=== PATIENT | female | born 1980 | race Caucasian/White ===

== ENCOUNTER → 2019-08-08 16:32 | Outpatient (CLI) | payer OTHER, SELFPAY ==
--- NOTE | 2019-08-08 16:32 | US_ITS ---
STUDY: SECOND AND THIRD TRIMESTER OBSTETRICAL ULTRASOUND limited REASON FOR EXAM: Female, 38 years old BLEEDING MILD NO CRAMPS VIABILITY LMP: 04/28/2019 TECHNIQUE: Transabdominal TECHNICAL QUALITY: Adequate. PRIOR ULTRASOUND: None. FINDINGS: There is a single intrauterine fetus. The fetus is in a cephalic presentation. There is demonstrated cardiac activity with a heart rate of 163 bpm. There is a grossly normal amniotic fluid volume. The largest amniotic fluid pocket measures 8.2 cm.The placenta is posterior with a marginal previa. The placental margin is located 3 mm from the cervix. There are Grade 0 placental changes. The cervix measures 3.1 cm in length. A left ovary cyst is present measuring 3.4 x 2.9 x 2.2 cm. BIOMETRY: BPD: 2.96 cm: 15 weeks, 3 days HC: 11.97: 16 weeks, 0 days AC: 9.39: 15 weeks, 4 days FL: 1.63: 14 weeks, 6 days CI: FL/BPD: 55% FL/HC: FL/AC: 17% HC/AC: 1.27 age by current US: 15 weeks, 4 days. [place] by current US: 01/26/2020. Estimated weight: 119 grams, +/- 17 grams, 83 %. Age by LMP: 14 weeks, 4 days. [place] by LMP: 02/02/2020. US/OB Limited With Biometrics IMPRESSION: Intrauterine gestation with sonographic age of 15 weeks 4 days. Cervix is closed. Positive cardiac activity. Grossly normal amniotic fluid volume. Marginal placenta previa. Maternal left ovary cyst.. Electronically Signed: Ramon Zaragoza MD at 22:44 EDT Tel , Service support ,
== END ==
PROVIDERS: PCP Nurse Practitioner; Referring Provider Nurse Practitioner Women's Health; Visit Provider Nurse Practitioner Women's Health
DX: O36.80X0 Pregnancy with inconclusive fetal viability, not applicable or unspecified (principal); O20.9 Hemorrhage in early pregnancy, unspecified; O34.82 Maternal care for other abnormalities of pelvic organs, second trimester; N83.202 Unspecified ovarian cyst, left side; Z3A.15 15 weeks gestation of pregnancy
CPT/HCPCS: 36415; 76816; 76817; 86850; 86900; 86901

== ENCOUNTER → 2019-08-10 | Outpatient (CLI) | payer OTHER, SELFPAY ==
[2019-08-10 13:28] VITALS: BMI 23.8
== END | disposition home or self-care (01) ==
LOC: LABSPEC 14:09
PROVIDERS: PCP Nurse Practitioner; Referring Provider Nurse Practitioner Women's Health; Visit Provider Nurse Practitioner Women's Health
DX: N89.8 Other specified noninflammatory disorders of vagina (principal)
CPT/HCPCS: 87070; 87205

== ENCOUNTER 2019-10-23 14:59 | Emergency (ER) | payer OTHER, SELFPAY ==
[2019-09-30 16:26] VITALS: BMI 23.8
[2019-10-23 15:01] VITALS: BP 123/80; PULSE 97; RESP 16; TEMP 36.3; O2SAT 99; BMI 25.0
--- NOTE | 2019-10-23 15:08 | ED.VIS.GEN ---
History of Present Illness Chief Complaint: Occup Expose Informant: Patient Onset: Today Narrative: Patient present secondary to occupational closure. 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 She states the wound did bleed but is now not even visible. Baby's mother is currently undergoing a blood work evaluation. No known infectious diseases. - Past Medical History (1) Anxiety and depression Status: Chronic Comment: counseling, zoloft. Past Medical History - Allergies and Home Meds Allergies/Adverse Reactions: Allergies Sulfa (Sulfonamide Antibiotics) Allergy (Mild, Verified 10/23/19 15:01) body rash Primary Care Physician: Sara Cardona NP-C [Primary Care Provider] - Prior records reviewed: Yes Lives: With Family Smoking Status: Never smoker Review of Systems General: Denies: Chills, Fever Eyes: Denies: Visual changes - bilaterally ENT: Denies: Bilateral ear pain Cardiovascular: Denies: Chest pain Respiratory: Denies: Dyspnea, Cough Gastrointestinal: Denies: Abdominal pain, Nausea Musculoskeletal: Denies: Neck pain, Back pain Skin: Reports: Wounds Neurological: Denies: Headache Hematologic: Denies: Easy bruising, Easy bleeding Allergy: Denies: Uticaria Physical Exam Vital Signs/Narrative: Vital Signs Temp Pulse Resp BP Pulse Ox 10/23/19 15:01 97.3 F L 97 16 123/80 H 99 Inital Vital Signs reviewed: Yes General: Well nourished, Well developed ENT: Moist mucous membranes Cardiovascular: Regular rate, Regular rhythm Respiratory: No distress Extremities: - - Puncture wound reported to left proximal phalanx index finger. No obvious injury on examination. Neurological: Alert, Oriented x3, Normal Strength, Normal Sensation Psychological: Normal affect Diagnostic/Tx/Re-eval - Medical Decision Making Occupational exposure labs to be drawn. Patient will follow-up with occupational health at the hospital. ED Disposition - Plan for ED Patient: Disposition: Home or Assisted Living Diagnosis: Needlestick injury of finger Instructions: ED NEEDLE STICK Health Care Worker Referrals: [facility] [GROUP OF PHYSICIANS] - 3-5 Days
[2019-10-23 18:51] LABS: HIV - WCH Non-Reactive (Nonreactive); Hepatitis B Surface Antibody Reactive; Hepatitis B Surface Antigen Non-Reactive (Nonreactive); Hepatitis C Antibody Non-Reactive (Nonreactive)
== END 2019-10-23 15:29 | disposition home or self-care (01) ==
LOC: ED 15:23
PROVIDERS: Emergency Provider Emergency Medicine; PCP Nurse Practitioner
DX: S61.231A Puncture wound without foreign body of left index finger without damage to nail, initial encounter (principal); W46.0XXA Contact with hypodermic needle, initial encounter; Y93.89 Activity, other specified; Y92.238 Other place in hospital as the place of occurrence of the external cause; Y99.0 Civilian activity done for income or pay
CPT/HCPCS: 36415; 86703; 86706; 86803; 87340; 99281

== ENCOUNTER → 2019-11-09 09:46 | Outpatient (CLI) | payer OTHER, SELFPAY ==
[2019-11-01 13:41] VITALS: BMI 25.0
[2019-11-09 10:09] LABS: Absolute Lymphocyte Count 1.81 X10^3/uL (0.83-4.51); Absolute Neutrophil Count 7.6 X10^3/uL (2.0-7.7); Basophil# 0.03 X10^3/uL; Basophil% 0.3 % (0-1); Eosinophil# 0.05 X10^3/uL; Eosinophils% 0.5 % (0-5); Hemoglobin 12.1 g/dL (12.0-15.0); Lymphocyte # 1.81 X10^3/ul (4.0); Lymphocyte % 18.1 % (19-41); Mean Corp Hgb Conc 31.8 g/dL (32-36); Mean Corpuscular Hgb 31.8 pg (27.0-32.0); Mean Platelet Vol. 10.6 fl (6.2-12.0); Monocyte# 0.45 X10^3/uL; Monocyte% 4.5 % (0-10); NRBC Flagged by Analyzer 0 % (0-5); Neutrophil # 7.56 X10^3/uL (2.7-7.7); Neutrophil % 75.6 % (47-70); Platelet Count 181 K/mm3 (150-450); RBC Distribution Width CV 13.3 % (11.6-14.6); RBC Distribution Width SD 49.1 fl (35.1-43.9)
[2019-11-09 10:39] LABS: Glucose Challenge Gest 1H 50g 102 mg/dL (70-140)
== END ==
PROVIDERS: PCP Nurse Practitioner; Referring Provider Obstetrics & Gynecology; Visit Provider Obstetrics & Gynecology
DX: O26.899 Other specified pregnancy related conditions, unspecified trimester (principal); Z67.91 Unspecified blood type, Rh negative
CPT/HCPCS: 36415; 82950; 85025; 86850; 86900; 86901

== ENCOUNTER → 2020-01-03 17:09 | Outpatient (CLI) | payer OTHER, SELFPAY ==
[2020-01-03 15:41] VITALS: BMI 25.0
== END ==
PROVIDERS: PCP Nurse Practitioner; Visit Provider Obstetrics & Gynecology
DX: O09.523 Supervision of elderly multigravida, third trimester (principal); Z3A.00 Weeks of gestation of pregnancy not specified; Z11.59 Encounter for screening for other viral diseases
CPT/HCPCS: 87081

== ENCOUNTER 2020-01-06 09:28 | Inpatient (IN) | payer OTHER, SELFPAY ==
[2020-01-03 15:41] VITALS: BMI 25.0
[2020-01-06] VITALS (21 sets, daily range): BP systolic 99–134; BP diastolic 53–81; PULSE 54–93; RESP 14–16; TEMP 36.2–37.5; O2SAT 96–99; BMI 28.4
[2020-01-06 09:23] LABS: ROM Internal Control Test YES-OK TO RESULT pt. (Internal QC)
[2020-01-06 09:24] LABS: ROM Patient Test POSITIVE (Negative)
[2020-01-06] MEDS: Betamethasone/Betamethasone 30 MG/5 ML Vial 12 MG IM (09:52)
[2020-01-06] MEDS: Lactated Ringers 1,000 ML 999 ML IV (10:00)
--- NOTE | 2020-01-06 10:11 | HP.PCM_ITS ---
- Problem List (1) premature rupture of membranes Status: Acute (2) High risk , multigravida of advanced maternal age in third trimester Status: Acute Comment: nl NIPT, plan 36 week growth US (3) Supervision of high-risk Status: Acute Comment: PRR [place] 02/02/20 surprise PC Emily Spouse Grecia (4) H/O section Status: Acute Comment: scheduled 01/26/2020 with SM (5) Dermoid cyst Status: Acute Comment: RIGHT- SMALL STABLE, remove at (6) Anxiety and depression Status: Chronic Comment: counseling, zoloft. (7) Status: Acute Qualifiers: Weeks of gestation: 36 weeks Qualified Code(s): Z3A.36 - 36 weeks gestation of Comment: [facility] nipt low risk. declined carrier and afp screening. nl anatomy (8) Rh negative status during Status: Acute Qualifiers: Comment: Rhogam Given 08/08/19 11/10/19 (9) S/P Status: Resolved (10) S/P wisdom tooth extraction Status: Resolved (11) s/p vulva surgery Status: Resolved History Date of Admission: 01/06/20 Final [place]: 02/02/20 Final [place] Source: LMP Gestational age: 36 Weeks and 1 Days History of this : This is a 39 year-old, G3, P1 at 36 weeks gestational age presenting with rupture of membranes. Reports cramping overnight then felt gush of fluid at 0630 this am. Having contractions, but not uncomfortable. Denies VB/DFM. Surgical History: Surgical History (Last Updated 01/06/20 @ 10:[address] Lisa Aguayo MD) S/P wisdom tooth extraction (Resolved) Z98.818 s/p vulva surgery (Resolved) S/P (Resolved) Z98.891 Allergies Sulfa (Sulfonamide Antibiotics) Allergy (Mild, Verified 01/03/20 15:26) body rash Home Medications: Home Medications sertraline 50 mg tablet 50 mg PO DAILY #30 tab 08/25/19 triamcinolone acetonide 55 mcg nasal spray aerosol 1 spray INTRANASAL DAILY 08/25/19 Vits [Prenatabs FA] 1 tab PO DAILY 10/23/19 lactobacillus combination no.8 3 billion cell capsule 3,000 mmu cells PO DAILY 11/01/19 Smoking Status: Never smoker Alcohol: None Number of Fetus(es): 1 NST - FHR Rate Baby A Baseline: 130 Variability:: Moderate Accelerations:: 15 x 15 Decelerations:: None NST Reactive:: Yes FHR Category:: Category I Uterine Activity:: q2-5min History Past Pregnancies: Past Pregnancies Del. Date Name GA/Weeks Outcome Route Bth Weight Gen Labor Lgth Anesthesia Del Locatn Provider FOB 04/07/17 Emily 37 live - full term 7lbs 3oz Female spinal [facility] Labs: Labs 01/06/20 10:00 WBC 9.7 RBC 4.15 L Hgb 13.1 Hct 40.5 MCV 97.6 MCH 31.6 MCHC 32.3 RDW Std Deviation 48.9 H RDW Coeff of Rosas 13.9 Plt Count 161 MPV 11.8 Immature Gran % (Auto) 0.800 Neut % (Auto) 73.7 H Lymph % (Auto) 18.6 L [place] % (Auto) 6.4 Eos % (Auto) 0.3 Baso % (Auto) 0.2 Absolute Neuts (auto) 7.2 Absolute Lymphs (auto) 1.81 Nucleated RBC % 0 Mom's Problem List Problem Status Onset Code premature rupture of membranes Acute O42.919 Mom's Labs & Results 01/06/20 01/06/20 01/06/20 09:00 10:00 10:00 WBC 9.7 RBC 4.15 L Hgb 13.1 Hct 40.5 MCV 97.6 MCH 31.6 MCHC 32.3 RDW Std Deviation 48.9 H RDW Coeff of Rosas 13.9 Plt Count 161 MPV 11.8 Immature Gran % (Auto) 0.800 Neut % (Auto) 73.7 H Lymph % (Auto) 18.6 L [place] % (Auto) 6.4 Eos % (Auto) 0.3 Baso % (Auto) 0.2 Absolute Neuts (auto) 7.2 Absolute Lymphs (auto) 1.81 Nucleated RBC % 0 Vag Amniotic Fld Detect POSITIVE H Blood Type Pending Antibody Screen Pending Course Did the patient receive Yes care? Labs Blood Type: O RH: NEGATIVE RPR/VDRL/Syphilis Nonreactive Rubella status Immune HbSAg Negative Date Done: 10/23/19 Chlamydia Negative Gonorrhea Negative HIV/AIDS Non-Reactive Group B Strep: Negative Current Obstetrical History Gestational Diabetes No Incompetent Cervix No Infertility No IUGR No Macrosomia No Hypertension/Pre-eclampsia No Placenta Previa/Abruption No PTL/PROM No Uterine anomaly No Oligohydramnios No Polyhydramnios No Multiple gestation No Past Medical History Asthma No Diabetes No Hypertension No Heart disease No Mitral valve prolapse No Neurologic/Seizure disorder/ No Migraines Kidney disease No Liver disease No Varicosities No Clotting disorders/Hx of DVT No Thyroid Dysfunction No Other medical diseases No Psychiatric disorders Yes: on zoloft d/t hx of depression Major trauma No Abnormal PAP smear No Sleep apnea No Mammogram in the last 2 years No Social History Marital Status: Alleged father grecia juarez Hx Smoking No Smoking Status Never smoker Expected Delivery Method: Repeat Section Describe any other labor & delivery plans:: flu vaccine: given. tdap vaccine: given. rhogam: given 11/09. LARC form signed: declined Review of Systems Constitutional: Denies: Chills, Fever, Weight Change HEENT: Denies: Head Aches, Sinus Congestion, Sinus Drainage Cardiovascular: Denies: Chest Pain, Palpitations Respiratory: Denies: Cough, Shortness of Breath Gastrointestinal: Reports: Abdominal Pain. Denies: Nausea, Vomiting Genitourinary: Denies: Dysuria Gynecological: Reports: Vaginal discharge. Denies: Vaginal bleeding, Vaginal itching Skin: Denies: Rash, Wounds Neurological: Denies: Headaches Psychiatric: Denies: Anxiety, Depression Physical Exam Vitals: Vital Signs Temp Pulse BP Pulse Ox 99.5 F H 93 131/81 H 98 01/06/20 08:41 01/06/20 08:47 01/06/20 08:47 01/06/20 08:41 General: Alert, Oriented x3, No apparent distress HEENT: Atraumatic, Normocephalic Cardiovascular: Regular rate Lungs: Normal air movement Abdomen: Soft, Non Tender, Non-Distended, Gravid, Appropriate for Gestational Age Neurological: Cranial nerves II-XII grossly intact, Deep Tendon Reflexes 2+/4 and Symmetrical, Neuro grossly intact COMPUTER TRAINER: Normal external genitalia Estimated gestational size: Appropriate for gestational size Presentation: Cephalic Cervix Dilation (cm): 1 Station: -3 Effacement (%): 50 Assessment/Plan All Active Problems (Last Reviewed 01/03/20 @ 15:25 by Emily Jasmine) Rh negative status during (Acute) (Acute) Dermoid cyst (Acute) H/O section (Acute) Supervision of high-risk (Acute) High risk , multigravida of advanced maternal age in third trimester (Acute) premature rupture of membranes (Acute) S/P wisdom tooth extraction (Resolved) s/p vulva surgery (Resolved) S/P (Resolved) Bleeding in early (Resolved) Marginal placenta previa (Resolved) This is a 39 year-old, G3, P1, at 36 weeks gestational age admitted for RCD for ROM 1. PPROM - Plan RCD today - Ancef and azithromycin for infection ppx - GBS negative - Rubella immune - Pain control per anesthesia - BMZx1 given pre-op - R/B/I/A to section discussed with patient including bleeding, infection, and damage to surrounding structures. Agreeable to blood products if medically necessary. All questions answered and consent signed 2. Dermoid cyst - Desires removal during section if possible. Discussed that we will examine the ovary to determine if this is possible. Discussed that we would ideally perform a cystectomy, but would possibly have to remove the ovary if the cyst were not able to be removed successfully. Patient agreeable with this plan. Also understands that we may not be able to perform this procedure in which case it would be performed at a later time.
[2020-01-06 10:19] LABS: Absolute Lymphocyte Count 1.81 X10^3/uL (0.83-4.51); Absolute Neutrophil Count 7.2 X10^3/uL (2.0-7.7); Basophil# 0.02 X10^3/uL; Basophil% 0.2 % (0-1); Eosinophil# 0.03 X10^3/uL; Eosinophils% 0.3 % (0-5); Hematocrit 40.5 % (37-47); Hemoglobin 13.1 g/dL (12.0-15.0); Lymphocyte # 1.81 X10^3/ul (4.0); Lymphocyte % 18.6 % (19-41); Mean Corp Hgb Conc 32.3 g/dL (32-36); Mean Corpuscular Hgb 31.6 pg (27.0-32.0); Mean Corpuscular Volume 97.6 fL (81-99); Mean Platelet Vol. 11.8 fl (6.2-12.0); Monocyte# 0.62 X10^3/uL; Monocyte% 6.4 % (0-10); NRBC Flagged by Analyzer 0 % (0-5); Neutrophil # 7.18 X10^3/uL (2.7-7.7); Neutrophil % 73.7 % (47-70); Platelet Count 161 K/mm3 (150-450); RBC Distribution Width CV 13.9 % (11.6-14.6); RBC Distribution Width SD 48.9 fl (35.1-43.9); Red Blood Count 4.15 M/mm3 (4.2-5.4); White Blood Count 9.7 K/mm3 (4.4-11.0)
[2020-01-06] MEDS: Acetaminophen 500 MG Tablet 1000 MG PO ×3 (10:38→23:16)
[2020-01-06] MEDS: Lactated Ringers 1,000 ML 150 ML IV (11:13)
[2020-01-06] MEDS: Sodium Citrate/Citric Acid 30 ML UDC PO (11:25)
[2020-01-06] MEDS: Cefazolin 2 GM in 0.9% Normal Saline 100 ML IV (11:53)
[2020-01-06] MEDS: Oxytocin 30 units/NS 500 ml 30 UNITS/500 ML IV.SOLN 167 UNITS IV (13:10)
--- NOTE | 2020-01-06 13:20 | PCM.OPRPT ---
Problem List (1) premature rupture of membranes Status: Acute (2) High risk , multigravida of advanced maternal age in third trimester Status: Acute Comment: nl NIPT, plan 36 week growth US (3) Supervision of high-risk Status: Acute Comment: PRR [place] 02/02/20 surprise PC Emily Spouse Oneal (4) H/O section Status: Acute Comment: scheduled 01/26/2020 with SM (5) Dermoid cyst Status: Acute Comment: RIGHT- SMALL STABLE, remove at (6) Anxiety and depression Status: Chronic Comment: counseling, zoloft. (7) Status: Acute Qualifiers: Weeks of gestation: 36 weeks Qualified Code(s): Z3A.36 - 36 weeks gestation of Comment: [facility] nipt low risk. declined carrier and afp screening. nl anatomy (8) Rh negative status during Status: Acute Qualifiers: Comment: Rhogam Given 08/08/19 11/10/19 (9) S/P Status: Resolved (10) S/P wisdom tooth extraction Status: Resolved (11) s/p vulva surgery Status: Resolved Delivery Classification: Scheduled Final [place]: 02/02/20 Final [place] Source: LMP Gestational age: 36 Weeks and 1 Days Type of Anesthesia:: Spinal Special Medications: Ancef and Azithromycin Date of Procedure: 01/06/20 Pre-Operative Diagnosis: Premature Rupture of Membranes, ovarian cyst Post-Operative Diagnosis: Same Indications: And is a G3, P1 at 36 weeks 1 day who presented with premature rupture of membranes. History of prior section and desired a repeat . Indications for : Repeat Elective Description of Procedure: Taken to the operating room where spinal anesthesia was obtained without difficulty. She was prepped and draped in the dorsal supine position with a leftward tilt. Abdomen was tested and anesthesia was noted to be adequate. Pfannenstiel skin incision was then used and the skin incision was made. It was extended down to the level of the fascia using the Bovie. The fascia was nicked in the midline and the incision was extended laterally using Culver scissors. The muscles were then in the midline and the peritoneum was entered bluntly. Was placed in the lower uterine segment was then identified. A low transverse incision was then made on the uterus using the scalpel. Clear amniotic fluid was then noted. The head was then elevated out of the pelvis. The was then delivered without difficulty using gentle fundal pressure. Nuchal cord was noted. After delayed cord clamping until the cord stopped pulsating the cord was clamped and cut. The was then handed off to the nursery nurses. The placenta was then delivered's spontaneously and appeared intact. The uterus was then exteriorized and the cavity was cleared of any membranes. The uterus was then closed in 2 layers using 0 Monocryl suture. Hemostasis was noted. Attention was then directed to the left ovary on which an approximately 4 cm cyst was noted. Incision was made in the ovarian stroma using the Bovie. It was noted to rupture upon creation of the incision. Mucinous fluid was then noted and suctioned. None of this fluid entered the abdominal cavity. The cyst was then reinspected and no clear delineation was noted between the cyst wall and the ovarian stroma. The decision was made to abort performing an ovarian cystectomy. Patient was informed of this decision. The uterus was then replaced in the abdominal cavity. The gutters were cleared with moist laparotomy sponges. The hysterotomy was reinspected and hemostasis was noted. The peritoneum was then closed in a running fashion using 3-0 Monocryl suture. Muscles were then inspected and hemostasis was achieved with the Bovie. Fascia was then closed using strata fix suture in a running fashion. Subcutaneous space was then copiously irrigated. Hemotasis was achieved with the Bovie. Subutaneous space was closed in a running fashion using 3-0 Monocryl suture. Skin was then closed in a running subcuticular fashion using 4-0 Monocryl suture. All counts were correct x2. The patient was taken to the recovery room in stable condition. Amniotic Membrane Rupture Type: Spontaneous Amniotic Fluid Description: Clear Placenta Disposition: [facility] Drain: [place] to straight drain Cord Entanglement: None Cord Vessel Description: 3 Vessels Esitmated Blood Loss (ml): 700 cc Infant Gender: Female Antibiotic Given: Ancef 2 grams IV x1, Zithromax 500 mg/5 mL X1 Pt instructed on risks of surgery: Bleeding, Anesthesia Risks, Infection, Need for Future C-Sections, Injury to surrounding structure(s) including bowel and bladder Complications: None - Admit VTE Documentation VTE Present on Admission: No VTE Mechan Device Prophylaxis: SCD's VTE Pharm Prophylaxis ordered?: Yes Multi Select Codes - Urinary/Genital Urinary/Genital CPT Codes: 69061 Delivery [facility]
[2020-01-06] MEDS: Methylergonovine 0.2 MG/ML Ampul IM (14:47)
[2020-01-06] MEDS: Lactated Ringers 1,000 ML 100 ML IV (15:38)
[2020-01-06] MEDS: Ketorolac 30 MG/ML Syringe IV (18:18)
[2020-01-06] MEDS: Ondansetron 4 MG/2 ML Vial IV (18:55)
[2020-01-07 00:01] VITALS: BP 111/64; PULSE 77; RESP 16; TEMP 37.1; O2SAT 98
[2020-01-07] MEDS: Ketorolac 30 MG/ML Syringe IV ×3 (00:06→14:25)
[2020-01-07] MEDS: 0.9% Saline Lock 10 ML Syringe IV ×2 (00:06→06:00)
[2020-01-07 03:16] VITALS: BP 104/59; PULSE 68; RESP 16; TEMP 36.9
[2020-01-07] MEDS: Acetaminophen 500 MG Tablet 1000 MG PO ×3 (05:06→18:20)
[2020-01-07 05:16] LABS: Hematocrit 34.8 % (37-47); Hemoglobin 11.4 g/dL (12.0-15.0); Mean Corp Hgb Conc 32.8 g/dL (32-36); Mean Corpuscular Hgb 31.8 pg (27.0-32.0); Mean Corpuscular Volume 97.2 fL (81-99); Mean Platelet Vol. 11.8 fl (6.2-12.0); Platelet Count 169 K/mm3 (150-450); RBC Distribution Width CV 13.6 % (11.6-14.6); RBC Distribution Width SD 48.1 fl (35.1-43.9); Red Blood Count 3.58 M/mm3 (4.2-5.4); White Blood Count 21.2 K/mm3 (4.4-11.0)
[2020-01-07] MEDS: Enoxaparin 40 MG/0.4 ML Syringe SC (08:05)
[2020-01-07] MEDS: Prenatal Vits Tablet 1 TABLET PO (08:05)
[2020-01-07] MEDS: Sertraline 50 MG Tablet PO (08:05)
--- NOTE | 2020-01-07 08:06 | PN.OBGYN_ITS ---
Patient Problems: Active and Suspected Problems (Last Reviewed 01/03/20 @ 15:25 by Emily Jasmine) premature rupture of membranes (Acute) Subjective: Patient doing well without complaints. Tolerating PO. Ambulating and voiding without difficulty. Passing small amounts of gas. Breast feeding without difficulty. Denies chest pain, shortness of breath, calf pain/swelling, fevers, chills, lightheadedness. Objective: Labs 01/06/20 01/07/20 10:00 05:10 WBC 9.7 21.2 H RBC 4.15 L 3.58 L Hgb 13.1 11.4 L Hct 40.5 34.8 L MCV 97.6 97.2 MCH 31.6 31.8 MCHC 32.3 32.8 RDW Std Deviation 48.9 H 48.1 H RDW Coeff of Rosas 13.9 13.6 Plt Count 161 169 MPV 11.8 11.8 Immature Gran % (Auto) 0.800 Neut % (Auto) 73.7 H Lymph % (Auto) 18.6 L [place] % (Auto) 6.4 Eos % (Auto) 0.3 Baso % (Auto) 0.2 Absolute Neuts (auto) 7.2 Absolute Lymphs (auto) 1.81 Nucleated RBC % 0 - Physical Exam Vitals/I&O's: Vital Signs Temp Pulse Resp BP Pulse Ox 98.5 F 68 16 104/59 L 98 01/07/20 03:16 01/07/20 03:16 01/07/20 03:16 01/07/20 03:16 01/07/20 00:01 Oxygen Delivery Method Room Air Weight: 171 lb Body Mass Index (BMI) 28.4 Intake and Output for Last 24 Hours 01/05/20 01/06/20 01/07/20 23:59 23:59 23:59 Intake Total 5190.67 / 5190.67 Output Total 1200 / 1200 1400 / 1400 Balance 3990.67 / 3990.67 -1400 / -1400 General: Alert, Oriented x3, Cooperative, No apparent distress HEENT: Atraumatic, PERRLA, EOMI, Normocephalic Neck: Supple Lungs: Normal air movement Cardiovascular: Regular rate Abdomen: Bowel Sounds Present, Soft, Non-Distended, Passing Flatus, Tender - appropriately TTP, - - Fundus firm at umbilicus Extremities: No Calf Tenderness, - - trace pedal edema Skin: No rashes, No breakdown Neurological: Cranial nerves II-XII grossly intact, Neuro grossly intact Psych/Mental Status: Normal Affect, Appropriate, Alert and oriented to time, place, person, mood and affect Laboratory Results 01/06/20 09:00: Vag Amniotic Fld Detect POSITIVE H 01/06/20 10:00: WBC 9.7, RBC 4.15 L, Hgb 13.1, Hct 40.5, MCV 97.6, MCH 31.6, MCHC 32.3, RDW Std Deviation 48.9 H, RDW Coeff of Rosas 13.9, Plt Count 161, MPV 11.8, Immature Gran % (Auto) 0.800, Neut % (Auto) 73.7 H, Lymph % (Auto) 18.6 L, [place] % (Auto) 6.4, Eos % (Auto) 0.3, Baso % (Auto) 0.2, Absolute Neuts (auto) 7.2, Absolute Lymphs (auto) 1.81, Nucleated RBC % 0 01/06/20 10:00: Blood Type O NEGATIVE, Antibody Screen TNP 01/06/20 10:00: Antibody Screen NEGATIVE 01/06/20 15:12: Screen NEGATIVE, Baby's Blood Type O POSITIVE, Baby's ERVIN NEGATIVE 01/07/20 05:10: WBC 21.2 H, RBC 3.58 L, Hgb 11.4 L, Hct 34.8 L, MCV 97.2, MCH 31.8, MCHC 32.8, RDW Std Deviation 48.1 H, RDW Coeff of Rosas 13.6, Plt Count 169, MPV 11.8 Current Medications Acetaminophen (Tylenol) 1,000 mg PO Q6H [facility] Last Admin: 01/07/20 05:06 Dose: 1,000 mg Documented by: Bisacodyl (Dulcolax) 10 mg RECTAL UD PRN PRN Reason: If no BM Diphenhydramine HCl (Benadryl) 25 mg PO Q6H PRN PRN PRN Reason: ITCHING Stop: 01/07/20 13:12 Enoxaparin Sodium (Lovenox) 40 mg SC DAILY [facility] Last Admin: 01/07/20 08:05 Dose: 40 mg Documented by: Hydrocortisone (Hytone) 1 applic TOPICAL TID PRN PRN; Protocol PRN Reason: Discomfort Naloxone HCl 4 mg/ Dextrose 504 mls @ 0 mls/hr IV .Q0M PRN; Protocol PRN Reason: To maintain Resp. rate >10 Lactated Ringer's () 1,000 mls @ 100 mls/hr IV .Q10H [facility] Last Admin: 01/07/20 05:15 Dose: Not Given Documented by: Ketorolac Tromethamine (Toradol (Bkc)) 30 mg IV Q6H [facility] Stop: 01/07/20 13:01 Last Admin: 01/07/20 06:00 Dose: 30 mg Documented by: Methylergonovine Maleate (Methergine) 0.2 mg IM X1 PRN PRN Reason: Uterine Atony Last Admin: 01/06/20 14:47 Dose: 0.2 mg Documented by: Nalbuphine HCl (Nubain) 5 mg IV Q3H PRN PRN PRN Reason: ITCHING Stop: 01/07/20 13:12 Naloxone HCl (Narcan) 0.02 mg IV Q1M PRN PRN Reason: RR< 10 AND PT UNRESPONSIVE Naproxen (Naprosyn) 500 mg PO Q8H [facility] Ondansetron HCl (Zofran) 4 mg IV Q4H PRN PRN PRN Reason: Nausea Last Admin: 01/06/20 18:55 Dose: 4 mg Documented by: Oxycodone HCl (Oxyir) 5 - 10 mg PO Q4H PRN PRN PRN Reason: Pain Score 4-10/10 Multivit/Folic Acid/Iron (Prenatabs Fa) 1 tablet PO DAILY@1200 [facility] Last Admin: 01/07/20 08:05 Dose: 1 tablet Documented by: Prochlorperazine Edisylate (Compazine Iv) 10 mg IV Q6H PRN PRN PRN Reason: NAUSEA Senna/Docusate Sodium (Senokot-S, Karen-Colace) 0 tablet PO DAILY [facility] Sertraline HCl (Zoloft) 50 mg PO DAILY [facility] Last Admin: 01/07/20 08:05 Dose: 50 mg Documented by: Simethicone (Mylicon) 80 mg PO HS PRN PRN Reason: Indigestion/stomach pain Last Admin: 01/07/20 08:05 Dose: 80 mg Documented by: Sodium Chloride () 5 - 15 ml IV UD PRN PRN Reason: SALINE FLUSH Last Admin: 01/07/20 06:00 Dose: 10 ml Documented by: Medical Necessity - Tobacco Use Smoking Status: Never smoker Assessment/Plan All Active Problems (Last Reviewed 01/03/20 @ 15:25 by Emily Jasmine) Rh negative status during (Acute) (Acute) Dermoid cyst (Acute) H/O section (Acute) Supervision of high-risk (Acute) High risk , multigravida of advanced maternal age in third trimester (Acute) premature rupture of membranes (Acute) S/P wisdom tooth extraction (Resolved) s/p vulva surgery (Resolved) S/P (Resolved) Bleeding in early (Resolved) Marginal placenta previa (Resolved) POD#1 s/p RLTCS 1. Routine care 2. Post-op Hb 11.4 3. Breast feeding - support given 4. Rh negative - rhogam given 5. Rubella immune 6. Pain controlled. Ambulating and voiding without difficulty. Passing gas.
[2020-01-07 08:09] VITALS: BP 102/58; PULSE 89; RESP 16; TEMP 36.8; O2SAT 98
--- NOTE | 2020-01-07 08:20 | DCINST_ITS ---
Discharge Diet: No Restrictions Discharge Activity: May Not Drive - for 2 weeks or while taking narcotic pain meds., May Shower, May Take a Tub Bath - in 7 days. May resume sexual activity in: 4-6 weeks Lifting Restrictions: 20 pounds Additional Activity Instructions:: Nothing in the vagina for 4-6 weeks. You may return to work/school in 6 weeks. Call your doctor if your incision/area has: Continuous Slow Oozing, Sudden Increased Bleeding, Increased Pain/ Swelling, Increased Redness, Foul Smelling Discharge Call your doctor if you observe: Fever of 101 or Higher Suture Line Care: Avoid Pulling/Pushing, Avoid Pinching/Bending Additional Instructions: If you experience any of the following, contact your healthcare provider. * Bleeding that soaks a pad every hour for 2 hours * Fever 100.4 or higher * Unrelieved incision or abdominal pain * Swelling, redness, discharge or bleeding from your incision or episiotomy site * Your incision begins to separate * Problems urinating (including inability to urinate or burning while urinating). * Visual changes * Severe headache * Flu-like symptoms * Pain or redness in one of both of your breasts * Pain, warmth, tenderness or swelling in your legs, especially the calf area * Frequent nausea and vomiting * Symptoms of depression or anxiety If you experience any of the following, call 911 or go to the nearest Emergency Room. * Chest pain * Problems breathing * Seizure activity * Partial or complete paralysis of a body part, slurred speech, weakness or drooping of the face, or a sudden inability to walk or hold your balance Allergies/Adverse Reactions: Allergies Sulfa (Sulfonamide Antibiotics) Allergy (Mild, Verified 01/03/20 15:26) body rash Medications to take at Discharge sertraline 50 mg tablet 50 mg PO DAILY #30 tab 08/25/19 triamcinolone acetonide 55 mcg nasal spray aerosol 1 spray INTRANASAL DAILY 08/25/19 Vits [Prenatabs FA ] 1 tab PO DAILY 10/23/19 lactobacillus combination no.8 3 billion cell capsule 3,000 mmu cells PO DAILY 11/01/19 Docusate Sodium [Colace] 100 mg PO BID #60 cap 01/07/20 Naproxen [Naprosyn] 250 - 500 mg PO Q8H PRN PRN #30 tab 01/07/20 Oxycodone HCl/Acetaminophen [Percocet 5-325] 1 - 2 tab PO Q6H PRN PRN 7 Days #15 tab 01/07/20 The following prescriptions were given: Docusate Sodium [Colace] 100 mg PO BID #60 cap Transmission Status: Received by [facility] Naproxen [Naprosyn] 250 - 500 mg PO Q8H PRN PRN #30 tab PRN Reason: MILD PAIN Transmission Status: Received by [facility] Oxycodone HCl/Acetaminophen [Percocet 5-325] 1 - 2 tab PO Q6H PRN PRN 7 Days #15 tab PRN Reason: Pain Transmission Status: Received by [facility] Follow-Up: Call to make an appointment with your doctor for an incision check in 1-2 weeks. You will also need a 6 week post- follow up appointment. Test results from this visit will be discussed in further detail at your follow- up appointment, if applicable. Primary Care Physician: Sara Cardona NP-C [Primary Care Provider] -
[2020-01-07 11:34] VITALS: BP 99/59; PULSE 66; RESP 16; TEMP 36.2; O2SAT 96
[2020-01-07] MEDS: Senna/Docusate Sodium 1 Tablet PO (11:37)
[2020-01-07 15:00] VITALS: BP 116/68; PULSE 69; RESP 16; TEMP 36.9; O2SAT 99
[2020-01-07 21:10] VITALS: BP 112/68; PULSE 73; RESP 18; TEMP 36.7
[2020-01-07] MEDS: Naproxen 250 MG Tablet 500 MG PO (22:03)
[2020-01-07 22:56] LABS: Color, Urine Yellow (Yellow); Glucose, Dipstick Normal (Normal); Ketone-Dipstick Negative (Negative); Leukocyte Esterase-Dipstick Negative /ul (Negative); Nitrite-Dipstick Negative (Negative); Occult Blood-Urine 250 /ul (Negative); Protein-Dipstick Negative (Negative); Specific Gravity, Urine 1.015 (1.002-1.030); Urine Bilirubin Dipstick Negative (Negative); Urine Clarity Sl. Cloudy (Clear); Urine Urobilinogen Normal (Normal); Urine pH 6.5 (5.0 - 8.0)
[2020-01-08] MEDS: Acetaminophen 500 MG Tablet 1000 MG PO ×2 (01:32→07:26)
[2020-01-08 01:35] VITALS: BP 124/70; PULSE 64; RESP 18; TEMP 36.9
[2020-01-08] MEDS: Naproxen 250 MG Tablet 500 MG PO (06:32)
[2020-01-08 08:38] VITALS: BP 109/70; PULSE 67; RESP 15; TEMP 36.9
--- NOTE | 2020-01-08 09:01 | PCM.PROGNOTE ---
Patient Problems: Active and Suspected Problems (Last Reviewed 01/03/20 @ 15:25 by Emily Jasmine) premature rupture of membranes (Acute) Subjective: Patient doing well without complaints. Pain well controlled. Tolerating PO. Ambulating and voiding without difficulty. Patient is passing gas. Breast feeding without difficulty. Denies chest pain, shortness of breath, calf pain/swelling, fevers, chills, lightheadedness. Objective: Labs 01/06/20 01/07/20 01/07/20 10:00 05:10 22:40 WBC 9.7 21.2 H RBC 4.15 L 3.58 L Hgb 13.1 11.4 L Hct 40.5 34.8 L MCV 97.6 97.2 MCH 31.6 31.8 MCHC 32.3 32.8 RDW Std Deviation 48.9 H 48.1 H RDW Coeff of Rosas 13.9 13.6 Plt Count 161 169 MPV 11.8 11.8 Immature Gran % (Auto) 0.800 Neut % (Auto) 73.7 H Lymph % (Auto) 18.6 L Letcher % (Auto) 6.4 Eos % (Auto) 0.3 Baso % (Auto) 0.2 Absolute Neuts (auto) 7.2 Absolute Lymphs (auto) 1.81 Nucleated RBC % 0 Urine Color Yellow Urine Clarity Sl. Cloudy Urine pH 6.5 Ur Specific [place] 1.015 Urine Protein Negative Urine Glucose (UA) Normal Urine Ketones Negative Urine Occult Blood 250 H Urine Nitrite Negative Urine Bilirubin Negative Urine Urobilinogen Normal Ur Leukocyte Esterase Negative - Physical Exam Vitals/I&O's: Vital Signs Temp Pulse Resp BP Pulse Ox 98.5 F 67 15 109/70 99 01/08/20 08:38 01/08/20 08:38 01/08/20 08:38 01/08/20 08:38 01/07/20 15:00 Oxygen Delivery Method Room Air Weight: 171 lb Body Mass Index (BMI) 28.4 Intake and Output for Last 24 Hours 01/06/20 01/07/20 01/08/20 23:59 23:59 23:59 Intake Total 5190.67 / 5190.67 Output Total 1200 / 1200 1400 / 1400 Balance 3990.67 / 3990.67 -1400 / -1400 General: Alert, Oriented x3, Cooperative HEENT: Atraumatic, PERRLA, EOMI, Normocephalic Neck: Supple Lungs: Normal air movement Cardiovascular: Regular rate Abdomen: Soft, Non Tender, Non-Distended, Passing Flatus, - - Fundus firm. Incision c/d/i with dressing in place Extremities: No edema, No Calf Tenderness Skin: No rashes Neurological: Cranial nerves II-XII grossly intact, Neuro grossly intact Psych/Mental Status: Normal Affect, Appropriate Laboratory Results 01/07/20 22:40: Urine Color Yellow, Urine Clarity Sl. Cloudy, Urine pH 6.5, Ur Specific [place] 1.015, Urine Protein Negative, Urine Glucose (UA) Normal, Urine Ketones Negative, Urine Occult Blood 250 H, Urine Nitrite Negative, Urine Bilirubin Negative, Urine Urobilinogen Normal, Ur Leukocyte Esterase Negative Current Medications Acetaminophen (Tylenol) 1,000 mg PO Q6H [facility] Last Admin: 01/08/20 07:26 Dose: 1,000 mg Documented by: Bisacodyl (Dulcolax) 10 mg RECTAL UD PRN PRN Reason: If no BM Enoxaparin Sodium (Lovenox) 40 mg SC DAILY [facility] Last Admin: 01/07/20 08:05 Dose: 40 mg Documented by: Hydrocortisone (Hytone) 1 applic TOPICAL TID PRN PRN; Protocol PRN Reason: Discomfort Naloxone HCl 4 mg/ Dextrose 504 mls @ 0 mls/hr IV .Q0M PRN; Protocol PRN Reason: To maintain Resp. rate >10 Methylergonovine Maleate (Methergine) 0.2 mg IM X1 PRN PRN Reason: Uterine Atony Last Admin: 01/06/20 14:47 Dose: 0.2 mg Documented by: Naloxone HCl (Narcan) 0.02 mg IV Q1M PRN PRN Reason: RR< 10 AND PT UNRESPONSIVE Naproxen (Naprosyn) 500 mg PO Q8H [facility] Last Admin: 01/08/20 06:32 Dose: 500 mg Documented by: Ondansetron HCl (Zofran) 4 mg IV Q4H PRN PRN PRN Reason: Nausea Last Admin: 01/06/20 18:55 Dose: 4 mg Documented by: Oxycodone HCl (Oxyir) 5 - 10 mg PO Q4H PRN PRN PRN Reason: Pain Score 4-10/10 Multivit/Folic Acid/Iron (Prenatabs Fa) 1 tablet PO DAILY@1200 [facility] Last Admin: 01/07/20 08:05 Dose: 1 tablet Documented by: Prochlorperazine Edisylate (Compazine Iv) 10 mg IV Q6H PRN PRN PRN Reason: NAUSEA Senna/Docusate Sodium (Senokot-S, Karen-Colace) 0 tablet PO DAILY [facility] Last Admin: 01/07/20 11:37 Dose: 1 tablet Documented by: Sertraline HCl (Zoloft) 50 mg PO DAILY [facility] Last Admin: 01/07/20 08:05 Dose: 50 mg Documented by: Simethicone (Mylicon) 80 mg PO HS PRN PRN Reason: Indigestion/stomach pain Last Admin: 01/07/20 22:03 Dose: 80 mg Documented by: Sodium Chloride () 5 - 15 ml IV UD PRN PRN Reason: SALINE FLUSH Last Admin: 01/07/20 06:00 Dose: 10 ml Documented by: Medical Necessity - Tobacco Use Smoking Status: Never smoker Assessment/Plan All Active Problems (Last Reviewed 01/03/20 @ 15:25 by Emily Jasmine) Rh negative status during (Acute) (Acute) Dermoid cyst (Acute) H/O section (Acute) Supervision of high-risk (Acute) High risk , multigravida of advanced maternal age in third trimester (Acute) premature rupture of membranes (Acute) S/P wisdom tooth extraction (Resolved) s/p vulva surgery (Resolved) S/P (Resolved) Bleeding in early (Resolved) Marginal placenta previa (Resolved) POD#2 s/p RLTCS 1. Routine care 2. Breast feeding - support given 3. Rh negative - rhogam given 4. Rubella immune 5. Plan for DC to home today in stable condition
[2020-01-08] MEDS: Senna/Docusate Sodium 1 Tablet PO (09:30)
[2020-01-08] MEDS: Enoxaparin 40 MG/0.4 ML Syringe SC (09:30)
[2020-01-08] MEDS: Prenatal Vits Tablet 1 TABLET PO (09:30)
--- NOTE | 2020-01-08 10:58 | NURSING ---
1050 dc to home; placed in car seat per parents; infant and maternal bracelet numbers match
== END 2020-01-08 10:50 | disposition home or self-care (01) | DRG 788 ==
LOC: WPOUT 09:28 → WP 09:28
PROVIDERS: Admitting Provider Obstetrics & Gynecology; PCP Nurse Practitioner; Referring Provider Obstetrics & Gynecology; Visit Provider Obstetrics & Gynecology
DX: O42.013 Preterm premature rupture of membranes, onset of labor within 24 hours of rupture, third trimester (principal); O99.89 Other specified diseases and conditions complicating pregnancy, childbirth and the puerperium; D27.1 Benign neoplasm of left ovary; O69.81X0 Labor and delivery complicated by cord around neck, without compression, not applicable or unspecified; Z3A.36 36 weeks gestation of pregnancy; Z37.0 Single live birth
CPT/HCPCS: 59025; 59050; 81002; 84112; 85025; 85027; 85461; 86850; 86900; 86901; 87086; 90384; 99218; J7120; A4216; G0378; J0702; J2405; J2790

== ENCOUNTER 2020-01-11 11:13 | Emergency (ER) | payer OTHER, SELFPAY ==
[2020-01-06 08:40] VITALS: BMI 28.4
[2020-01-11 11:14] VITALS: BP 130/80; PULSE 62; RESP 16; TEMP 36.6; O2SAT 100; BMI 27.2
--- NOTE | 2020-01-11 11:43 | EKG12_ITS ---
Test Reason : Blood Pressure : / mmHG Vent. Rate : 059 BPM Atrial Rate : 059 BPM P-R Int : 136 ms QRS Dur : 090 ms QT Int : 432 ms P-R-T Axes : 050 019 045 degrees QTc Int : 427 ms Sinus bradycardia Otherwise normal ECG Confirmed by MACARENA BROOKE ([id number]), newspaper copy editor MYAH RJOO ([id number]) on 01/16/2020 9:35:18 AM Referred By: ORALIA Confirmed By:MACARENA BROOKE
--- NOTE | 2020-01-11 11:44 | CT_ITS ---
STUDY: CTA CHEST REASON FOR EXAM: Female, 39 years old. CP/PRESSURE, 6 DAYS AGO RADIATION DOSAGE (If Supplied By Facility): CTDIvol = ( 9.39 ) mGy, DLP = ( 331.40 ) mGycm TECHNIQUE: The examination was performed with the intravenous administration of IV 100mL Isovue-370. Post-processing of the angiographic images was performed, with multiplanar reformation and 3D reconstruction. Individualized dose optimization techniques were used for this CT. COMPARISON: None. FINDINGS: Normal enhancement of the main pulmonary artery and right and left pulmonary arteries. Normal enhancement of the bilateral peripheral pulmonary arteries. There is no demonstrated pulmonary embolism. Normal thoracic aorta and visualized great vessels. There is no demonstrated aortic dissection. Normal heart and pericardium. Normal mediastinum. Normal hilar regions. Normal visualized trachea and bronchi. The lungs are well expanded. Normal pulmonary parenchyma. Normal pleura. Normal chest wall structures. Normal osseous structures. Normal visualized upper abdomen. CT/CTA Chest W/WO Contrast IMPRESSION: Normal CTA chest examination, without a demonstrated pulmonary embolism or arterial dissection. Electronically Signed: Kenny Almonte, at 14:11 EDT Tel , Service support ,
[2020-01-11 12:07] VITALS: BP 148/81; PULSE 56; RESP 12; O2SAT 100
[2020-01-11 12:13] LABS: Absolute Lymphocyte Count 1.75 X10^3/uL (0.83-4.51); Absolute Neutrophil Count 5.8 X10^3/uL (2.0-7.7); Basophil# 0.01 X10^3/uL; Basophil% 0.1 % (0-1); Eosinophil# 0.11 X10^3/uL; Eosinophils% 1.3 % (0-5); Hematocrit 35.6 % (37-47); Hemoglobin 11.4 g/dL (12.0-15.0); Lymphocyte # 1.75 X10^3/ul (4.0); Lymphocyte % 21.4 % (19-41); Mean Corpuscular Hgb 31.6 pg (27.0-32.0); Mean Corpuscular Volume 98.6 fL (81-99); Mean Platelet Vol. 11.1 fl (6.2-12.0); Monocyte# 0.44 X10^3/uL; Monocyte% 5.4 % (0-10); NRBC Flagged by Analyzer 0 % (0-5); Neutrophil # 5.82 X10^3/uL (2.7-7.7); Neutrophil % 71.4 % (47-70); Platelet Count 193 K/mm3 (150-450); RBC Distribution Width CV 13.8 % (11.6-14.6); RBC Distribution Width SD 49.7 fl (35.1-43.9); Red Blood Count 3.61 M/mm3 (4.2-5.4); White Blood Count 8.2 K/mm3 (4.4-11.0)
[2020-01-11 12:31] LABS: BNP,B-Type NATRIURETIC PEPTIDE 171.5 pg/mL (0-100)
[2020-01-11 12:35] LABS: Mucous, Urine 0 SEEN /hpf (<or=2+)
[2020-01-11 12:35] LABS: ALB/GLOB Ratio 0.8 RATIO (0.9-2.4); AST(SGOT) 57 U/L (15-37); Alanine Aminotransfer ALT/SGPT 69 U/L (13-56); Albumin, Serum 2.8 g/dL (3.2-5.0); Alkaline Phosphatase 98 U/L (45-117); Anion Gap 5 (5-15); BUN 6 mg/dL (7-18); BUN/Creat Ratio 11.7 RATIO (10-20); Chloride 113 mmol/L (98-107); Creatinine, Serum 0.52 mg/dL (0.55-1.02); EST Glomerular Filtration Rate 142 mL/min (>60); Est Glom Filt Rate - Afr Amer 171 mL/min (>60); Globulin 3.4 g/dL (2.2-4.2); Glucose 73 mg/dL (74-106); Potassium 3.6 mmol/L (3.5-5.1); Protein, Total 6.2 g/dL (6.4-8.2); Sodium Level 145 mmol/L (136-145)
[2020-01-11 12:47] LABS: Color, Urine Yellow (Yellow); Glucose, Dipstick Normal (Normal); Ketone-Dipstick Negative (Negative); Leukocyte Esterase-Dipstick 100 /ul (Negative); Nitrite-Dipstick Negative (Negative); Occult Blood-Urine 250 /ul (Negative); Protein-Dipstick Negative (Negative); Urine Bilirubin Dipstick Negative (Negative); Urine Clarity Sl. Cloudy (Clear); Urine Urobilinogen Normal (Normal)
[2020-01-11 12:55] LABS: Bacteria 1+ /hpf (None Seen); Red Blood Cells-Urine 25-50 SEEN /hpf (0-5); Squamous Epithelial Cells - UA 0-5 SEEN /hpf (5-10); White Blood Cells 10-25 SEEN /hpf (0-5)
--- NOTE | 2020-01-11 14:27 | ED.VISSUMM ---
- ER Visit Summary Date of Service: 01/11/20 Chief Complaint: Pain and hypertension [] History of Present Illness: The patient is a 39 F [presents to the emergency department with symptoms for the last 5 days. Patient states that she delivered a baby 5 days ago via . Patient's had a lot of chest pressure and discomfort since that time. Patient checked her blood pressure today and noted that it was 150/91 and she checked it again and it was 130s over 90s. Patient called her RECYCLING MANAGER office and was instructed to come to the emergency department for evaluation. Patient is . She has had no prior history of preeclampsia. She denies headache. She denies fever or cough. She has had some mild dysuria intermittently. Patient states she had a recent urine culture that showed no growth.] Physical Examination: [HEENT-PERRLA, EOMI. Cranial nerves II through XII grossly intact. TMs clear. Mucous membranes moist. No adenopathy. Cardiovascular-regular rate and rhythm without murmur or ectopy Lungs-clear to auscultation, chest wall stable without crepitus or subcu emphysema Abdomen-normoactive bowel sounds, soft, nontender, no rebound or rigidity, no peritoneal signs. Extremities-intact ?4, normal range of motion, normal pulses, atraumatic] Test Results: [EKG obtained on arrival shows sinus rhythm with a ventricular rate of 59 bpm with no acute segment changes. CBC with differential showed a white of 8.2, hemoglobin 11.4, hematocrit 36, platelets 193. Chemistries unremarkable. LFTs showed a slightly elevated ALT of 69 and an AST of 57. Alk phos was normal at 98. Urinalysis obtained showed 100 cassette esterase as well as 10-25 WBCs and 25-30 RBCs. Troponin was less than 0.015. BNP was 171. CTA of the chest showed no evidence of PE or dissection.] Emergency Department Course and Treatment: [Patient case was discussed with Dr. Aguayo who performed the patient . I was asked to start the patient on Procardia XL as she continues to have systolic blood pressures in the 140s. She is to make a follow-up appointment with our office for follow-up. Patient comfortable with plan.] Treatment Plan: [Patient will be started on Procardia XL. Patient to follow-up with her RECYCLING MANAGER. Patient to keep a journal of her blood pressures. She is advised to return if increasing shortness of breath increased swelling, severe headaches, or condition should worsen anyway.] Disposition: [Discharged home in stable condition] Impression: [Chest pain-etiology uncertain Hypertension-] This note was generated with [employer] dictation software. It may contain incorrect words, spelling, and punctuation that were not noted in review of the chart prior to signing ED Disposition - Plan for ED Patient: Referrals: Sara Cardona, CERTIFIED PATHOLOGY ASSISTANT-C [Primary Care Provider] -
--- NOTE | 2020-01-11 14:31 | ED.DEP ---
ED Disposition - Plan for ED Patient: Instructions: ED Hypertension New Begin Treatment, ED Chest Pain Atypical Unkn Cause Prescriptions: Nifedipine [Procardia Xl] 30 mg PO DAILY #30 tab.er.24 Prescription Printed Referrals: Sara Cardona NP-C [Primary Care Provider] - Lisa Aguayo MD [STAFF PHYSICIAN] - 5-7 Days
[2020-01-11 15:50] VITALS: BP 137/66; PULSE 84; RESP 17; O2SAT 96
[2020-01-11] MEDS: NIFEdipine 30 MG Tablet PO (16:00)
== END 2020-01-11 16:00 | disposition home or self-care (01) ==
LOC: ED 13:13
PROVIDERS: Emergency Provider Emergency Medicine; PCP Nurse Practitioner
DX: R07.89 Other chest pain (principal); I10 Essential (primary) hypertension
CPT/HCPCS: 71275; 80053; 81001; 83880; 84484; 85025; 93005; 99285; Q9967; A4216

== ENCOUNTER → 2020-02-24 14:12 | Outpatient (CLI) | payer OTHER, SELFPAY ==
[2020-02-22 10:11] VITALS: BMI 27.2
--- NOTE | 2020-02-24 14:13 | US_ITS ---
STUDY: ULTRASOUND OF THE FEMALE PELVIS - COMPLETE REASON FOR EXAM: Female, 39 years old. F/U LT OVARIAN CYST, PT 7 WEEKS POST VIA . PT STATES SHE HAD AN OVARIAN CYST DRAINED DURING HER C SECTION. TECHNIQUE: Transvaginal real-time exam with vuong scale image documentation. TECHNICAL QUALITY: Adequate. COMPARISON: Prior abdomen and pelvic CT exam of 06/13/2011 FINDINGS: The uterus is anteverted and is in a midline position. The uterus measures 8.6 x 6.2 x 4.1 cm. Normal uterine cervix. The endometrium measures 5 mm in thickness, and is hyperechoic. There is no demonstrated endometrial mass. There is no demonstrated myometrial mass. I.U.D. - The patient does not have an I.U.D. The right ovary is visualized. The right ovary measures 2.9 x 2.1 x 1.6 cm. There are multiple normal follicles and a 1.1 x 1.0 x 1.2 cm discrete solid hyperechoic nodule. There is no visualized right adnexal mass or complex lesion. There is normal arterial and normal venous vascularity. The left ovary is visualized. The left ovary measures 5.2 x 4.0 x 2.7 cm cm. There is a complex mass of the left ovary, combined measurement of 2.6 x 3.9 x 5.5 cm with a multicystic or septated cystic component with the largest cyst measuring 3.0 x 3.1 x 1.5 cm and a solid or fluid density component measuring 4.0 x 3.6 x 2.7 cm including an area of hyperechoic tissue and a seminodular configuration. There is no visualized left adnexal mass or complex lesion. There is normal arterial and normal venous vascularity. Mild free fluid US/Transvaginal Non- IMPRESSION: Normal uterus. 1.1 x 1.0 x 1.2 cm discrete hyperechoic nodule of the right ovary consistent with a fatty dermoid. A similar but slightly smaller lesion of the right ovary was identified on a prior abdomen and pelvic CT exam of 06/13/2011. Normal DOPPLER Complex mass of the left ovary containing multicystic/septated cystic mass component, solid hyperechoic tissue and fluid filled tissue consistent with dermoid. Size of the mass appears similar in size to the left adnexal mass on prior CT exam on [id number] comparison. Findings consistent with dermoid. Normal DOPPLER Minimal free fluid. Electronically Signed: Kathy Wall MD at 16:19 EDT , Service support ,
== END ==
PROVIDERS: PCP Nurse Practitioner; Referring Provider Obstetrics & Gynecology; Visit Provider Obstetrics & Gynecology
DX: N83.209 Unspecified ovarian cyst, unspecified side (principal)
CPT/HCPCS: 76830

== ENCOUNTER → 2020-03-09 14:00 | Outpatient (CLI) | payer OTHER, SELFPAY ==
[2020-02-22 10:11] VITALS: BMI 27.2
--- NOTE | 2020-03-09 14:12 | CT_ITS ---
STUDY: CT MAXILLOFACIAL SINUSES REASON FOR EXAM: Female, 39 years old. SINUSITIS x 1 year RADIATION DOSAGE (If Supplied By Facility): CTDIvol = ( 33.45 ) mGy, DLP = ( 822.36 ) mGycm TECHNIQUE: The patient was scanned in a multi detector CT scanner. High resolution axial imaging was performed without the administration of intravenous contrast material. Sagittal and coronal images were reconstructed. Individualized dose optimization techniques were used for this CT. COMPARISON: None. FINDINGS: FRONTAL SINUSES: Normal aeration, without mucosal inflammatory disease. ETHMOIDAL SINUSES: Normal aeration, without mucosal inflammatory disease. MAXILLARY SINUSES: Normal aeration, without mucosal inflammatory disease. SPHENOIDAL SINUSES: Normal aeration, without mucosal inflammatory disease. There is patency of the bilateral maxillary infundibuli with normal uncinate processes, ethmoid bullae, and hiatus semilunaris. Normal bilateral middle turbinates. Normal bilateral inferior turbinates. Normal midline nasal septum. There is patency of the bilateral nasal airways. The visualized osseous structures are normal. The visualized bilateral orbital contents are normal. CT/Sinus/Facial Bone IMPRESSION: Normal CT examination of the maxillofacial sinuses. Electronically Signed: Alexis Lima, at 15:47 EDT , Service support ,
== END ==
PROVIDERS: PCP Nurse Practitioner; Referring Provider Otolaryngology; Visit Provider Otolaryngology
DX: J32.9 Chronic sinusitis, unspecified (principal)
CPT/HCPCS: 70486

== ENCOUNTER → 2020-03-19 10:25 | Outpatient (CLI) | payer OTHER, SELFPAY ==
[2020-02-22 10:11] VITALS: BMI 27.2
== END ==
PROVIDERS: PCP Nurse Practitioner; Referring Provider Otolaryngology; Visit Provider Otolaryngology
DX: Z20.828 Contact with and (suspected) exposure to other viral communicable diseases (principal)
CPT/HCPCS: 87635; C9803; U0003

== ENCOUNTER 2020-05-08 07:27 | Day surgery (SDC) | payer OTHER, SELFPAY ==
[2020-03-19 11:20] VITALS: BMI 25.0
[2020-04-23 14:06] VITALS: BMI 24.7
[2020-05-07 10:11] LABS: Hemoglobin 13.7 g/dL (12.0-15.0); Mean Corp Hgb Conc 32.6 g/dL (32-36); Mean Corpuscular Hgb 30.2 pg (27.0-32.0); Mean Corpuscular Volume 92.7 fL (81-99); Mean Platelet Vol. 10.1 fl (6.2-12.0); Platelet Count 217 K/mm3 (150-450); RBC Distribution Width CV 13.4 % (11.6-14.6); RBC Distribution Width SD 45.7 fl (35.1-43.9); Red Blood Count 4.53 M/mm3 (4.2-5.4); White Blood Count 5.9 K/mm3 (4.4-11.0)
[2020-05-08] VITALS (7 sets, daily range): BP systolic 98–130; BP diastolic 61–78; PULSE 54–83; RESP 16–18; TEMP 36.2–36.9; O2SAT 99–100; BMI 24.3
--- NOTE | 2020-05-08 | OV_PTH ---
PATIENT: SOLANGE WHITE LOC: [facility] U#:[id number] AGE/SX: 39/F ROOM: RE05/08/[address]: Dr. 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 Fallopian tube with no pathologic change. AM:amairani 05/09/20 COMMENT Case has been reviewed in consultation with Dr. Gandhi who concurs with the above diagnosis. IDC:RAI MICROSCOPIC DESCRIPTION Slides are reviewed. GROSS DESCRIPTION Received in fixative is one container labeled with the patient's name and designated left ovary and fallopian tube. The specimen consists of a fallopian tube and ovary. The fallopian tube measures 4 cm in length and 0.5 cm in diameter. The fimbrial end is identified. No tubo-ovarian adhesions are noted. Sections reveal unremarkable cut surfaces. The soft to cystic ovary weighs 27 gm and measures 6 x 4.5 x 2.5 cm. The external surface is inked black. The external surface is smooth without any papillation. Sections reveal one large cyst replacing almost the entire ovary filled with yellow sebum-like material. Two smaller cysts are also noted filled with mucoid material. The cyst wall measures 0.1 to 0.3 cm in thickness. No solid area is identified. Stave Block Roller sections are submitted in four cassettes as follows: 1 - fallopian tube, 2-4 - ovary. / RAI:amairani 05/08/20 TC:1 CPT: 86814
--- NOTE | 2020-05-08 07:20 | HP.PCM_ITS ---
- Problem List (1) Dermoid cyst Status: Acute Comment: persistent left cyst, has bilateral removed in the pa [facility]. discussed ovarian cystectomy versus oophorectomy. History and Physical Date of Admission: 05/08/20 Intake Vital Signs 04/23/20 Height 5 ft 5 in 04/23/20 Weight: 149 lb 04/23/20 BMI 24.7 04/23/20 BP 100/82 H Intake Visit Reasons: PRE OP Chief Complaint: pre op Brush Washer Required: No Is patient in pain?: No Allergies Sulfa (Sulfonamide Antibiotics) Allergy (Mild, Verified 04/23/20 14:07) body rash Medications sertraline 50 mg tablet 50 mg PO DAILY #30 tab 08/25/19 [Rx Confirmed 03/19/20] triamcinolone acetonide 55 mcg nasal spray aerosol 1 spray INTRANASAL DAILY 08/25/19 [History Confirmed 03/19/20] Vits [Prenatabs FA ] 1 tab PO DAILY 10/23/19 [History Confirmed 04/23/20] norethindrone (contraceptive) 0.35 mg tablet 0.35 mg PO DAILY #84 tab 03/19/20 [Rx Confirmed 04/23/20] Is last menstrual period known: No Post menopausal: No Patient : No : Yes PFSH Surgical History S/P wisdom tooth extraction (Resolved) s/p vulva surgery (Resolved) S/P (Resolved) Family History Grandfather Prostate cancer Bone cancer Grandmother Diabetes Heart disease Father Leukemia Social History (Updated 04/23/20 @ 14:[address] Elana Bui MD) Smoking Status: Never smoker alcohol intake: never substance use type: does not use caffeine: No what type of physical activity do you participate in: none seatbelt use: always do you feel safe at home: Yes additional social history: - Oneal HPI PRE OP : Details: SOLANGE WHITE is a 39 year old who presents for left dermoid cyst persistent . Pregancy History 3 Elective abortions Hx Para 2 Spontaneous abortions 1 Hx # Term Pregnancies Ectopic pregnancies Hx # Pregnancies 1 Multiple births # of living children 2 Past Pregnancies Del. Date Name GA/Weeks Outcome Route Bth Weight Gen Labor Lgth Anesthesia Del [facility] Provider FOB 04/07/17 Emily 37 live - full term 7lbs 3oz Female spinal [facility] 01/06/20 L[place] 36 live - C-se ction Female spinal [facility] Dr. Aguayo Delivery Date: 04/07/17 Bleeding during , subchorionic hemorrhage Csection due to vulva surgery Emily Jasmine Delivery Date: 01/06/20 No notes to display ROS Const Constitutional: Denies fatigue, fever(s), headache(s), increased appetite, poor appetite, weight gain or weight loss Cardio Card: Denies chest pain Resp Resp: Denies cough or dyspnea GI GI: Reports as per HPI; denies abdominal pain, constipation, nausea or vomiting : Reports as per HPI; denies difficulty urinating, painful urination, nipple discharge, urinary frequency, urinary incontinence, urinary hesitancy, urinary urgency, vaginal discharge, vaginal dryness, vaginal odor or vaginal itching Skin Skin/Breast: Denies change in hair, breast lump, breast pain, breast skin changes or nipple discharge Exam Const General: cooperative, healthy appearing, comfortable, no acute distress, well developed, well groomed Nutritional Appearance: average body habitus Orientation: alert, awake, oriented x3 Neck Neck: normal visual inspection, full ROM Resp Effort & Inspection: normal respiratory effort, able to speak in complete sentences, symmetric chest movement Cardio Rate: regular rate Skin General: no rashes or lesions noted, elasticity normal, turgor normal Lesions: no lesions Rashes: no rashes Neuro General: alert, awake, oriented x3 Cranial Nerves: CN's II-XI intact bilaterally, PERRL, accommodation normal, EOM intact bilaterally Cognition: normal cognition Speech: speech normal Gait: normal gait Extrem General: normal to inspection, full ROM, no pedal edema Psych Appearance: grossly normal Mental Status: mental status grossly normal Mood: congruent mood Affect: normal affect Speech and Movement: speech and movement normal Attitude: cooperative Thought Process: normal Thought Content: normal Assessment & Plan Problems 1. Dermoid cyst D36.9 persistent left cyst, has bilateral removed in the past. discussed ovarian cystectomy versus oophorectomy. Plan After discussing the patient's diagnosis and treatment plan options, patient wishes to proceed with surgical management. I have discussed with the patient the risks, benefits, and alternatives of the procedure which include but are not limited to risks of anesthesia, bleeding, infection, possible damage to bowel, bladder, or surrounding vasculature which could lead to additional surgery to evaluate any complications. Patient agrees to procedure and wishes to proceed. ACOG/uptodate references given for additional information regarding procedure. Coding Level of Care Code No Charge Diagnoses Dermoid cyst D36.9 UPDATE- I have seen the patient and performed any clinically relevant updates to the history and physical exam. Elana Bui MD
[2020-05-08 07:54] LABS: Internal QC Validated? YES +Cl - CLEAR BKGD; Pregnancy, Urine Negative Negative
[2020-05-08] MEDS: Lactated Ringers 1,000 ML 100 ML IV ×2 (08:33→10:40)
--- NOTE | 2020-05-08 09:49 | PCM.OPRPT ---
Problem List (1) Dermoid cyst Status: Resolved Comment: persistent left cyst, has bilateral removed in the past. discussed ovarian cystectomy versus oophorectomy. Report of Operation Date of Procedure: 05/08/20 Pre-Operative Diagnosis: left ovarian complex cyst Post-Operative Diagnosis: Same left complex ovarian cyst Surgery/Procedure Performed:: Laparoscopic left salpingo-oophorectomy Description of Surgical Findings:: Enlarged left complex ovarian cyst and left tubal adhesions. Small left pelvic sidewall adhesions. director business: Makayla Bermudez Type of Anesthesia:: General Special Medications: None Specimen's removed: Left ovary and tube Drains: None Estimated Blood Loss (mL): 25 cc Fluids Replaced: Crystalloid Description of Procedure: Patient was taken in the operating room and was placed under general anesthesia was prepped and draped in normal sterile fashion in the dorsal lithotomy position. Bladder was drained of clear urine and SCDs were on preoperatively. Uterus was sounded and a uterine manipulator was placed after dilating. Attention was then paid to the abdominal portion of the procedure and the umbilicus was elevated with towel clamps and injected with Marcaine and after a 5 mm incision was made and the Veress needle was entered into the abdomen confirmed to be intra-abdominal with a low opening pressure of less than 5 mmHg. Abdomen was insufflated with CO2 gas and a wealth mm optical trocar was placed under direct visualization. A left lower quadrant 5 mm port and a 5 mm port suprapubically were placed under direct visualization. Uterus was well visualized and a large complex appearing ovary did not look like an dermoid cyst but more like a cystadenoma was seen with left fallopian tube adhesions and left sigmoid to pelvic sidewall adhesions. These were taken down sharply and with the LigaSure device. The infundibulopelvic ligament down the mesosalpinx and utero-ovarian ligament were cauterized and cut with the LigaSure device without complication to remove the left tube and ovary. Excellent hemostasis was noted. Left ovary was removed through bag in the 12 port enlarging the umbilical incision without complication and that incision was closed in the fascia with direct visualization using an 0 Vicryl on a UR 6 needle. Liver and upper abdomen were visualized notably within normal limits and no other gross abnormalities were seen in the abdomen. All instruments removed from the abdomen after gas was desufflated. Port sites were closed with 3-0 Monocryl Steri's and op sites were applied. All instruments removed from the vagina and patient was awoken and taken recovery in stable condition. Grafts/Implants Used: none - Complications none - Admit VTE Documentation VTE Present on Admission: No VTE Mechan Device Prophylaxis: SCD's Multi Select Codes - Urinary/Genital Urinary/Genital CPT Codes: 32603 Laproscopic BS/O
--- NOTE | 2020-05-08 09:54 | DCINST_ITS ---
Discharge Diet: No Restrictions - Increase fluid intake for the next 48 hours. Discharge Activity: Return to Normal Activity, May Drive - when you are no longer taking narcotic pain medications., May Shower, May Take a Tub Bath - in 7 days Additional Activity Instructions:: Ambulate often the next week after surgery. Nothing in the vagina for 5 days. Call your doctor if your incision/area has: Continuous Slow Oozing, Sudden Increased Bleeding, Increased Pain/ Swelling, Increased Redness, Foul Smelling Discharge Call your doctor if you observe: Fever of 101 or Higher Allergies/Adverse Reactions: Allergies Sulfa (Sulfonamide Antibiotics) Allergy (Mild, Verified 05/08/20 07:42) body rash Medications to take at Discharge sertraline 50 mg tablet 50 mg PO DAILY #30 tab 08/25/19 triamcinolone acetonide 55 mcg nasal spray aerosol 1 spray INTRANASAL DAILY 08/25/19 Vits [Prenatabs FA ] 1 tab PO DAILY 10/23/19 norethindrone (contraceptive) 0.35 mg tablet 0.35 mg PO DAILY #84 tab 03/19/20 Primary Care Physician: Sara Cardona MOVIE PRODUCER, MOVIE PRODUCER-C [Primary Care Provider] - Test Results: Test results from this visit will be discussed in further detail at your follow- up appointment, if applicable. Please Follow Up With: Elana Bui MD - [phone]
[2020-05-08] MEDS: Bupivacaine 0.25% 30 ML Vial (09:55)
[2020-05-08] MEDS: Lubricating Jelly 60 GM Tube 30 GM TOPICAL (09:55)
== END 2020-05-08 13:34 | disposition home or self-care (01) ==
LOC: SDC 07:28 → AC 07:28
PROVIDERS: PCP Nurse Practitioner; Referring Provider Obstetrics & Gynecology; Visit Provider Obstetrics & Gynecology
PROC: (CPT 58661; principal; 2020-05-08 08:45)
DX: D27.1 Benign neoplasm of left ovary (principal); N73.6 Female pelvic peritoneal adhesions (postinfective); F32.9 Major depressive disorder, single episode, unspecified; F41.9 Anxiety disorder, unspecified; Z20.828 Contact with and (suspected) exposure to other viral communicable diseases
CPT/HCPCS: 00840; 58661; 36415; 81025; 85027; 86850; 86900; 86901; 87426; 88305; 88307; C9803; J7120; J2405

== ENCOUNTER → 2020-12-17 | Outpatient (CLI) | payer OTHER, SELFPAY ==
[2020-12-17 13:25] VITALS: BMI 25.0
[2020-12-17 15:08] LABS: Amphetamine Urine VISTA NEGATIVE (<1000 ng/mL); Barbiturate Urine VISTA NEGATIVE (< 200 ng/mL); Benzodiazepine Urine VISTA NEGATIVE (< 200 ng/mL); Cocaine Urine VISTA NEGATIVE (< 300 ng/mL); Ecstacy Urine VISTA NEGATIVE (< 500 ng/mL); Methadone Urine VISTA NEGATIVE (< 300 ng/mL); PCP Urine VISTA NEGATIVE (< 25 ng/mL); THC Urine VISTA NEGATIVE (< 50 ng/mL); Vista UDS pH Range 7
[2020-12-20 08:08] LABS: Chlamydia By Nucleic Acid AMP Negative (Negative)
[2020-12-20 12:32] LABS: Gonococcus By Nucleic Acid AMP Negative (Negative)
== END | disposition home or self-care (01) ==
PROVIDERS: PCP Nurse Practitioner; Visit Provider Obstetrics & Gynecology
DX: Z34.90 Encounter for supervision of normal pregnancy, unspecified, unspecified trimester (principal)
CPT/HCPCS: 80307; 87086; 87088; 87491; 87591

== ENCOUNTER → 2020-12-21 | Outpatient (CLI) | payer OTHER, SELFPAY ==
[2020-12-17 13:25] VITALS: BMI 25.0
== END | disposition home or self-care (01) ==
LOC: LABSPEC 15:16
PROVIDERS: PCP Family Medicine; Referring Provider Otolaryngology; Visit Provider Otolaryngology
DX: J02.9 Acute pharyngitis, unspecified (principal)
CPT/HCPCS: 87070

== ENCOUNTER → 2021-01-02 10:29 | Outpatient (CLI) | payer OTHER, SELFPAY ==
[2020-12-17 13:25] VITALS: BMI 25.0
[2021-01-02 10:48] LABS: Absolute Lymphocyte Count 1.54 X10^3/uL (0.83-4.51); Absolute Neutrophil Count 6.5 X10^3/uL (2.0-7.7); Basophil# 0.02 X10^3/uL; Basophil% 0.2 % (0-1); Eosinophil# 0.04 X10^3/uL; Eosinophils% 0.5 % (0-5); Hematocrit 40.6 % (37-47); Hemoglobin 13.3 g/dL (12.0-15.0); Lymphocyte # 1.54 X10^3/ul (0.83-4.51); Lymphocyte % 18.1 % (19-41); Mean Corp Hgb Conc 32.8 g/dL (32-36); Mean Corpuscular Hgb 30.5 pg (27.0-32.0); Mean Corpuscular Volume 93.1 fL (81-99); Mean Platelet Vol. 10.2 fl (6.2-12.0); Monocyte# 0.39 X10^3/uL; Monocyte% 4.6 % (0-10); NRBC Flagged by Analyzer 0 % (0-5); Neutrophil # 6.49 X10^3/uL (2.7-7.7); Neutrophil % 76.4 % (47-70); Platelet Count 237 K/mm3 (150-450); RBC Distribution Width CV 13.2 % (11.6-14.6); RBC Distribution Width SD 45.2 fl (35.1-43.9); Red Blood Count 4.36 M/mm3 (4.2-5.4); White Blood Count 8.5 K/mm3 (4.4-11.0)
[2021-01-02 12:25] LABS: HIV - WCH Non-Reactive (Nonreactive); Hepatitis B Surface Antigen Non-Reactive (Nonreactive); Hepatitis C Antibody Non-Reactive (Nonreactive); Rubella IgG Reactive (Nonreactive); Syphilis Antibodies Non-reactive
[2021-01-02 13:16] LABS: NATERA MAILED SPECIMEN
== END ==
LOC: PAVLAB 10:30 → LAB 12:05
PROVIDERS: PCP Family Medicine; Referring Provider Obstetrics & Gynecology; Visit Provider Obstetrics & Gynecology
DX: O09.521 Supervision of elderly multigravida, first trimester (principal); Z3A.00 Weeks of gestation of pregnancy not specified
CPT/HCPCS: 36415; 85025; 86703; 86762; 86780; 86803; 86850; 86900; 86901; 87340

== ENCOUNTER → 2021-01-15 13:46 | Outpatient (CLI) | payer OTHER, SELFPAY ==
--- NOTE | 2021-01-15 13:49 | US_ITS ---
STUDY: FIRST TRIMESTER OBSTETRICAL ULTRASOUND REASON FOR EXAM: Female, 40 years old vaginal bleeding LMP: 10/11/2020 TECHNIQUE: Transabdominal and Transvaginal TECHNICAL QUALITY: Adequate. PRIOR ULTRASOUND: None. FINDINGS: There is visualization of a single gestational sac in a normal intrauterine position. The mean sac diameter (MSD) measures 65 mm, indicating an estimated gestational age (EGA) of 12 weeks, 5 days. The gestational sac shape is within normal limits. There is no demonstrated yolk sac.. The placenta is non-visualized. There is visualization of a live embryo. The crown-rump length (CRL) measures 67 mm, indicating an estimated gestational age (EGA) of 13 weeks, 0 days. There is demonstrated cardiac activity with a heart rate of 167 bpm. The estimated gestation age (EGA) by LMP is 12 weeks, 4 days. The estimated date of delivery ([place]) by LMP is 07/26/2021. The estimated gestation age (EGA) by US is 12 weeks, 6 days. The estimated date of delivery ([place]) by US is 07/24/2021. The uterus measures 15.9 x 11.8 x 7.9 cm. There is no demonstrated uterine fibroid. The cervix is closed. The ovaries are not visualized. There is no fluid in the cul de sac. US/Init OB < 14Wks US IMPRESSION: Living intrauterine of 12 weeks 6 days as described above. Electronically Signed: Pino Jean MD at 10:15 EDT Tel , Service support ,
== END ==
PROVIDERS: PCP Family Medicine; Referring Provider Nurse Practitioner Women's Health; Visit Provider Nurse Practitioner Women's Health
DX: O46.91 Antepartum hemorrhage, unspecified, first trimester (principal); Z3A.12 12 weeks gestation of pregnancy
CPT/HCPCS: 76801

== ENCOUNTER → 2021-01-30 08:36 | Outpatient (CLI) | payer OTHER, SELFPAY ==
[2021-01-30 08:53] LABS: Absolute Lymphocyte Count 1.44 X10^3/uL (0.83-4.51); Absolute Neutrophil Count 6.9 X10^3/uL (2.0-7.7); Basophil# 0.02 X10^3/uL; Basophil% 0.2 % (0-1); Eosinophil# 0.08 X10^3/uL; Eosinophils% 0.9 % (0-5); Hematocrit 38.9 % (37-47); Hemoglobin 12.7 g/dL (12.0-15.0); Lymphocyte # 1.44 X10^3/ul (0.83-4.51); Lymphocyte % 16.2 % (19-41); Mean Corp Hgb Conc 32.6 g/dL (32-36); Mean Corpuscular Hgb 30.6 pg (27.0-32.0); Mean Corpuscular Volume 93.7 fL (81-99); Mean Platelet Vol. 10.1 fl (6.2-12.0); Monocyte% 4.5 % (0-10); NRBC Flagged by Analyzer 0 % (0-5); Neutrophil # 6.91 X10^3/uL (2.7-7.7); Neutrophil % 77.8 % (47-70); Platelet Count 225 K/mm3 (150-450); RBC Distribution Width CV 13.5 % (11.6-14.6); RBC Distribution Width SD 46.4 fl (35.1-43.9); Red Blood Count 4.15 M/mm3 (4.2-5.4); White Blood Count 8.9 K/mm3 (4.4-11.0)
[2021-01-30 09:02] LABS: Fibrinogen 394 mg/dl (203-444)
[2021-02-01 07:45] LABS: Kleihauer-Betke Negative
== END ==
PROVIDERS: PCP Family Medicine; Referring Provider Obstetrics & Gynecology; Visit Provider Obstetrics & Gynecology
DX: O41.8X90 Other specified disorders of amniotic fluid and membranes, unspecified trimester, not applicable or unspecified (principal); O46.8X9 Other antepartum hemorrhage, unspecified trimester; Z3A.00 Weeks of gestation of pregnancy not specified
CPT/HCPCS: 36415; 85025; 85384; 85460

== ENCOUNTER → 2021-05-13 14:01 | Outpatient (CLI) | payer OTHER, SELFPAY ==
[2021-05-13 15:07] LABS: Basophil# 0.03 X10^3/uL; Basophil% 0.2 % (0-1); Eosinophil# 0.22 X10^3/uL; Eosinophils% 1.8 % (0-5); Hematocrit 35.4 % (37-47); Hemoglobin 11.5 g/dL (12.0-15.0); Lymphocyte % 17.5 % (19-41); Mean Corp Hgb Conc 32.5 g/dL (32-36); Mean Corpuscular Hgb 30.7 pg (27.0-32.0); Mean Corpuscular Volume 94.4 fL (81-99); Mean Platelet Vol. 10.8 fl (6.2-12.0); NRBC Flagged by Analyzer 0 % (0-5); Neutrophil # 8.96 X10^3/uL (2.7-7.7); Neutrophil % 74.5 % (47-70); Platelet Count 188 K/mm3 (150-450); RBC Distribution Width CV 13.2 % (11.6-14.6); RBC Distribution Width SD 45.3 fl (35.1-43.9); Red Blood Count 3.75 M/mm3 (4.2-5.4)
[2021-05-13 15:18] LABS: Glucose Challenge Gest 1H 50g 111 mg/dL (70-140)
== END ==
PROVIDERS: PCP Family Medicine; Referring Provider Obstetrics & Gynecology; Visit Provider Obstetrics & Gynecology
DX: Z34.92 Encounter for supervision of normal pregnancy, unspecified, second trimester (principal); Z13.1 Encounter for screening for diabetes mellitus
CPT/HCPCS: 36415; 82950; 85025; 86850; 86900; 86901

== ENCOUNTER 2021-05-29 09:05 | Outpatient (CLI) | payer OTHER, SELFPAY | END 2021-05-29 23:59 | disposition short-term general hospital (02) | LOC: LABSPEC 09:06 | PROVIDERS: PCP Family Medicine; Visit Provider Physician Assistant | DX: Z11.52 Encounter for screening for COVID-19 (principal) | CPT/HCPCS: 87635; U0003; U0005 ==

== ENCOUNTER 2021-06-20 16:57 | Outpatient (CLI) | payer OTHER, SELFPAY | END 2021-06-20 23:59 | disposition short-term general hospital (02) | LOC: LABSPEC 16:58 | PROVIDERS: PCP Family Medicine; Visit Provider Obstetrics & Gynecology | DX: Z36.85 Encounter for antenatal screening for Streptococcus B (principal) | CPT/HCPCS: 87081 ==

== ENCOUNTER 2021-06-25 10:10 | Outpatient (CLI) | payer OTHER, SELFPAY ==
[2021-06-25 10:16] VITALS: BMI 28.0
--- NOTE | 2021-06-25 10:40 | OB.TRI.PN_ITS ---
Progress Notes Date of Service: 06/25/21 Progress Note: Patient presents for triage evaluation secondary to further monitoring due to marked variability in the office, contractions that are increasing in frequency and regularity. she denies any bleeding but thought there could be LOF, negative ROM plus. FHT: 130 Moderate variability reactive no decelerations category I tracing [place]: q 2-4 Contractions PFSH updated and reviewed ROS Const Reports system reviewed and no additional complaints, except as documented Card Reports system reviewed and no additional complaints, except as documented Resp Reports system reviewed and no additional complaints, except as documented GI Reports system reviewed and no additional complaints, except as documented, Reports nausea Reports system reviewed and no additional complaints, except as documented Musc Reports system reviewed and no additional complaints, except as documented all other systems reviewed and negative Exam Const General: cooperative, healthy appearing, comfortable HENMT Head: normal to inspection Nose: external nose normal Face and sinus: normal facial exam Neck Neck: normal visual inspection, full ROM, no lymphadenopathy Thyroid: thyroid normal Chest Chest palpation & inspection: normal inspection of the chest Resp Effort & Inspection: normal respiratory effort GI Inspection: normal to inspection Palpation: soft, other (gravid uterus) Other: vertex and appropriate size for gestational age Other: Cervical Exam: 0/thick/high Extrem General: pedal edema Charges/Coding Visit Charges OBSV E&M: 60205 Initial observation care L3 Assessment & Plan (1) contractions: COMMENT: exp management, procardia given for comfort. BMZ given. (2) AMA (advanced maternal age) multigravida 35+: QUALIFIERS: Trimester: third trimester Qualified Code(s): O09.523 - Supervision of elderly multigravida, third trimester (3) Non-reactive NST (non-stress test): COMMENT: to [facility] for decel to 85 for 30 second. (4) Ovarian cyst: COMMENT: h/o dermoid, possible ovarian cystectomy with RLTCS (5) Contact dermatitis: COMMENT: start rick, see Dr Wasserman ?1st trim PUPPS (6) History of delivery: COMMENT: plan CL screening and progesterone injections (7) Supervision of high risk , antepartum: COMMENT: PRR [place] 07/26/21 PC: Loida Diaz. Spouse:Oneal (8) Rh negative state in antepartum period: COMMENT: Rhogam 28 wk, pp and prn (9) History of : COMMENT: 07/19/21 @ 12, LTCS with SM (10) : QUALIFIERS: Weeks of gestation: 34 weeks Qualified Code(s): Z3A.34 - 34 weeks gestation of COMMENT: Declines carrier screen. NIPT- low risk DOES NOT WANT TO KNOW GENDER; NL anatomy. GBS neg (11) Environmental allergies: COMMENT: weekly allergy injections (12) Anxiety: COMMENT: on zoloft PLAN: admit STO, repeat BPP in am due to 6/8 BPP, continue monitoring due to contractions. [facility] Medical History (Updated 06/26/21 @ 05:[address] Elana Bui MD) Anxiety Depression History of pre-term labor Surgical History H/O submucous nasal surgery History of salpingoophorectomy S/P s/p vulva surgery S/P wisdom tooth extraction Family History Grandfather Prostate cancer Bone cancer Grandmother Diabetes Heart disease Father Leukemia Mother Eating disorder Social History adopted: No household members: spouse and children number of children: 2 current occupational status: employed current occupation: RN [employer] [facility] pets and animals: Yes pets and animals: dog(s) Smoking Status: Never smoker alcohol intake: never substance use type: does not use caffeine: No what type of physical activity do you participate in: none seatbelt use: always do you feel safe at home: Yes additional social history: - Oneal Female Reproductive History Menstrual Ab spontaneous: 1 History 4 Elective abortions Hx Para 2 Spontaneous abortions 1 Hx # Term Pregnancies Ectopic pregnancies Hx # Pregnancies 1 Multiple births # of living children 2 Past Pregnancies Del. Date Name GA/Weeks Outcome Route Bth Weight Infant Gen Labor Lgth Anesthesia Del Locatn Provider FOB Unknown SAB 201804/07/17 Emily 37 live - full term 7lbs 3oz Female spinal [facility] 01/06/20 Loida 36 live - Female sp inal [facility] Dr. Aguayo Delivery Date: No notes to display Delivery Date: 04/07/17 Bleeding during , subchorionic hemorrhage Csection due to vulva surgery Tosin Jasmineh Delivery Date: 01/06/20 PROM: Cassidy Hassan Pregancy History 4 Elective abortions Hx Para 2 Spontaneous abortions 1 Hx # Term Pregnancies Ectopic pregnancies Hx # Pregnancies 1 Multiple births # of living children 2 Past Pregnancies Del. Date Name GA/Weeks Outcome Route Bth Weight Infant Gen Labor Lgth Anesthesia Del Locatn Provider FOB Unknown 201804/07/17 Emily 37 live - full term 7lbs 3oz Female spinal [facility] 01/06/20 Loida 36 live - Female sp inal [facility] Dr. Aguayo Delivery Date: No notes to display Delivery Date: 04/07/17 Bleeding during , subchorionic hemorrhage Csection due to vulva surgery Tosin Jasmineh Delivery Date: 01/06/20 PROM: Cassidy Hassan
--- NOTE | 2021-06-25 12:27 | US_ITS ---
STUDY: OBSTETRICAL ULTRASOUND - BIOPHYSICAL PROFILE REASON FOR EXAM: Female, 40 years old. deceleration LMP: Unknown. PRIOR ULTRASOUND: 01/15/21 TECHNIQUE: Transabdominal ultrasound evaluation was performed. FINDINGS: There is a single intrauterine fetus. The fetus is in a cephalic presentation. There is demonstrated cardiac activity with a heart rate of 123 bpm. There is a normal amniotic fluid volume. The amniotic fluid index (DC) is 20 cm. The placenta is anterior in location and is not low lying. BIOPHYSICAL PROFILE: Breathing Movements (FBM): 0 Gross Body Movements (GBM): 2 Tone (FT): 2 Amniotic Fluid Volume (AFV): 2 TOTAL SCORE: 6 / 8 US/Biophysical Prof W/O Non Stres IMPRESSION: Biophysical profile score 6/8 with no breathing movements observed. Electronically Signed: Julien Gloria MD at 14:31 EST ,
[2021-06-25] MEDS: Betamethasone/Betamethasone 30 MG/5 ML Vial 12 MG IM (13:26)
[2021-06-25 14:05] LABS: ROM Internal Control Test YES-OK TO RESULT pt. (Internal QC); ROM Patient Test Negative (Negative)
[2021-06-25 14:24] VITALS: BP 127/76; PULSE 80; TEMP 36.7
[2021-06-25 17:11] LABS: Bacteria 0 SEEN /hpf (None Seen); Mucous, Urine 0 SEEN /hpf (<or=2+); Red Blood Cells-Urine 0 SEEN /hpf (0-5); White Blood Cells 0 SEEN /hpf (0-5)
[2021-06-25 17:12] LABS: Color, Urine Yellow (Yellow); Glucose, Dipstick Normal (Normal); Ketone-Dipstick 50 mg/dl (Negative); Leukocyte Esterase-Dipstick Negative /ul (Negative); Nitrite-Dipstick Negative (Negative); Occult Blood-Urine Negative /ul (Negative); Protein-Dipstick Negative (Negative); Specific Gravity, Urine 1.015 (1.002-1.030); Urine Bilirubin Dipstick Negative (Negative); Urine Clarity Clear (Clear); Urine Urobilinogen Normal (Normal)
[2021-06-25 17:23] LABS: Squamous Epithelial Cells - UA 0-5 SEEN /hpf (5-10)
[2021-06-25 17:39] VITALS: BP 110/72; PULSE 100; TEMP 36.8; O2SAT 99
[2021-06-25 17:42] VITALS: PULSE 104; O2SAT 99
[2021-06-25] MEDS: NIFEdipine 10 MG Capsule PO (17:42)
[2021-06-25 20:04] VITALS: BP 130/72; PULSE 102; TEMP 37; O2SAT 98
[2021-06-25] MEDS: Lactated Ringers 1,000 ML 999 ML IV (20:30)
[2021-06-26] VITALS (8 sets, daily range): BP systolic 96–120; BP diastolic 55–67; PULSE 82–93; TEMP 36.4; O2SAT 97–98
[2021-06-26] MEDS: Acetaminophen 500 MG Tablet 1000 MG PO ×3 (00:17→12:05)
[2021-06-26] MEDS: NIFEdipine 10 MG Capsule PO ×3 (00:17→12:05)
[2021-06-26] MEDS: DiphenhydrAMINE 25 MG Capsule 50 MG PO (00:17)
--- NOTE | 2021-06-26 07:53 | PCM.PN.BLA ---
Progress Note pt is sitting up in bed. She states that she got some rest last night. There was a 2 minute prolonged decel last night, no other concerns from nursing. current tracing: FHT: 115-120 baseline, Moderate variability reactive no decelerations category I tracing [place]: irregular Contractions, pt states is not feeing them since the procardia was started reviewed tracing abnormalities since last note: was cat 2 due to prolonged decel, now cat 1 A/P: 35 weeks 5 days , 2 prior deliveries -sent from office yesterday due to audible decel on NST (doing for AMA). Bpp on l&D yesterday was 6/8 (8/10 with NST) however she was having painful contractions and did not feel comfortable going home. Celestoe 12.5 mg IM was given yesterday afternoon and she was given procardia -decel last night -plan for rpt bpp this am and possible dc to home after next celestone as long as tracing is cat 1, bpp 8/10 or higher, and she is not feeling uncomfortable. Multi Select Codes Visit Charges Observation E&M Codin Subsequent observation care L3
[2021-06-26] MEDS: Betamethasone/Betamethasone 30 MG/5 ML Vial 12 MG IM (12:52)
== END 2021-06-26 13:36 | disposition home or self-care (01) ==
LOC: WPOUT 10:12 → WP 10:14
PROVIDERS: PCP Family Medicine; Referring Provider Obstetrics & Gynecology; Visit Provider Obstetrics & Gynecology
DX: O36.8330 Maternal care for abnormalities of the fetal heart rate or rhythm, third trimester, not applicable or unspecified (principal); O09.523 Supervision of elderly multigravida, third trimester; O99.891 Other specified diseases and conditions complicating pregnancy; D36.9 Benign neoplasm, unspecified site; O99.713 Diseases of the skin and subcutaneous tissue complicating pregnancy, third trimester; L25.9 Unspecified contact dermatitis, unspecified cause; O34.211 Maternal care for low transverse scar from previous cesarean delivery; O99.513 Diseases of the respiratory system complicating pregnancy, third trimester; J30.2 Other seasonal allergic rhinitis; O99.343 Other mental disorders complicating pregnancy, third trimester; F41.9 Anxiety disorder, unspecified; Z3A.35 35 weeks gestation of pregnancy; Z87.59 Personal history of other complications of pregnancy, childbirth and the puerperium
CPT/HCPCS: 96372 ×2; 96360; 59025; 59050; 76819; 81001; 84112; 87086; 87088; 99218; J7120; G0378; J0702

== ENCOUNTER 2021-06-26 08:40 | Outpatient (CLI) | payer OTHER, SELFPAY ==
--- NOTE | 2021-06-26 08:43 | US_ITS ---
STUDY: OBSTETRICAL ULTRASOUND - BIOPHYSICAL PROFILE REASON FOR EXAM: Female, 40 years old . well-being. LMP: 10/19/2020. PRIOR ULTRASOUND: Comparison is made with prior examination dated 06/25/2021. TECHNIQUE: Transabdominal TECHNICAL QUALITY: Adequate. FINDINGS: There is a single intrauterine fetus. The fetus is in a cephalic presentation. There is demonstrated cardiac activity with a heart rate of 123 bpm. There is a normal amniotic fluid volume. The largest amniotic fluid pocket measures 5.1 cm. The amniotic fluid index (DC) is 15.5 cm. The placenta is anterior in location and is not low lying. There are Grade 1 placental changes. BIOPHYSICAL PROFILE: Breathing Movements (FBM): 2 Gross Body Movements (GBM): 2 Tone (FT): 2 Amniotic Fluid Volume (AFV): 2 TOTAL SCORE: 8 / 8 US/Biophysical Prof W/O Non Stres IMPRESSION: Normal biophysical profile of 12/30. Electronically Signed: Alexis Lima MD at 10:54 EST ,
== END 2021-06-26 23:59 | disposition short-term general hospital (02) ==
PROVIDERS: PCP Family Medicine; Referring Provider Obstetrics & Gynecology; Visit Provider Obstetrics & Gynecology
DX: O47.00 False labor before 37 completed weeks of gestation, unspecified trimester (principal)
CPT/HCPCS: 76819

== ENCOUNTER 2021-07-05 03:20 | Inpatient (IN) | payer OTHER, SELFPAY ==
[2021-06-25 10:28] VITALS: BP 116/67; PULSE 88; TEMP 36.5; O2SAT 100
--- NOTE | 2021-07-04 | FALS_PTH ---
PATIENT: SOLANGE WHITE LOC: [facility] U#:[id number] AGE/SX: 40/F ROOM: WP006 RE07/05/[address]: Dr. Amara Butler DO : 1980 BED: 1 DIS: 07/07/2021 SPEC #: [id number] RECD: 07/05/21 09:48 STATUS: LANI HENRRY #: [id number] KANDY: 07/04/21 00:[address]: Amara Butler DEPT: SURGICAL PATHOLOGY RECD BY: Renee Pate ENTERED: 07/05/21 09:49 SP TYPE: FALL TUBES OTHR DR: Ze Lopez Tissues: Fallopian tube Procedures: Surgery Specimen Level II HEADER OPERATION: Tubal ligation PRE-OP DIAGNOSIS: Sterilization TISSUE SUBMITTED: Right fallopian tube MICROSCOPIC DIAGNOSIS Right fallopian tube, salpingectomy: Complete segment of fallopian tube with benign paratubal cyst. AM:amairani 07/08/2021 MICROSCOPIC DESCRIPTION Slides are reviewed. GROSS DESCRIPTION Received in fixative is one container labeled with the patient's name and designated right tube. The specimen consists of a fallopian tube including fimbrial end measuring 6 cm in length and 0.6 cm in diameter. Sections reveal unremarkable cut surfaces. Mail Rider sections are submitted in one cassette. / SJ:amairani 07/05/2021 TC:5 CPT: 83337
[2021-07-05] VITALS (19 sets, daily range): BP systolic 99–129; BP diastolic 60–78; PULSE 70–96; RESP 16–18; TEMP 36.1–36.9; O2SAT 97–100; BMI 28.2
--- NOTE | 2021-07-05 03:28 | HP.PCM.OB_ITS ---
HPI - General General Date of Admission: 07/05/21 HPI Narrative SOLANGE WHITE, is a 40 @ 37 weeks 0d F who presents to L&D with grossly ruptured membranes. She has a h/o prior section and desires repeat with bilateral tubal ligation Maternal Data Information [place] Calculator Estimated Delivery Date Method Current WG Current Estimate 07/26/21 LMP (Certain) 37w 0d PFSH PFSH Medical History Anxiety Depression History of pre-term labor Home Medications triamcinolone acetonide 55 mcg nasal spray aerosol 1 spray INTRANASAL DAILY 08/25/19 [History Last Taken 06/24/21 08:00] vit,[id number] 1 tab PO DAILY 10/23/19 [History Last Taken 06/24/21 17:00] sertraline 50 mg tablet 50 mg PO DAILY #90 tab 08/03/20 [Rx Last Taken 06/24/21 21:00] hydroxyprogest(PF)(preg presv) [[place] (PF)] 275 mg SUBCUT QWEEK 06/25/21 [History Last Taken 06/24/21 21:00] nifedipine 10 mg PO Q6H PRN 7 Days #28 cap 06/26/21 [Rx Last Taken Unknown] Allergy/AdvReac Type Severity Reaction Status Date / Time Sulfa (Sulfonamide Allergy Mild body rash Verified 07/04/21 08:34 Antibiotics) Family History Grandfather Prostate cancer Bone cancer Grandmother Diabetes Heart disease Father Leukemia Mother Eating disorder Surgical History H/O submucous nasal surgery History of salpingoophorectomy S/P s/p vulva surgery S/P wisdom tooth extraction Social History adopted: No household members: spouse and children number of children: 2 current occupational status: employed current occupation: [employer] [facility] pets and animals: Yes pets and animals: dog(s) Smoking Status: Never smoker alcohol intake: never substance use type: does not use caffeine: No what type of physical activity do you participate in: none seatbelt use: always do you feel safe at home: Yes additional social history: - Oneal History 4 Elective abortions Hx Para 2 Spontaneous abortions 1 Hx # Term Pregnancies Ectopic pregnancies Hx # Pregnancies 1 Multiple births # of living children 2 Past Pregnancies Del. Date Name GA/Weeks Outcome Route Bth Weight Gen Labor Lgth Anesthesia Del Locatn Provider FOB Unknown SAB 201804/07/17 Emily 37 live - full term 7lbs 3oz Female spinal [facility] 01/06/20 Loida 36 live - Female sp inal [employer] Dr. Aguayo Delivery Date: No notes to display Delivery Date: 04/07/17 Bleeding during , subchorionic hemorrhage Csection due to vulva surgery Emily Jasmine Delivery Date: 01/06/20 PROM: RLTCS ReannaSolange be Visit Details Expected Delivery Route/Plan RLTCS and RS with SM Plans covid status: vaccinated flu vaccine: given tdap vaccine: [] rhogam: [] LARC form signed: [] Problem list reviewed and updated with the most current plan of care details and appropriate orders placed. Relevant counseling for the gestational age provided. Continue routine care and follow up unless otherwise noted in visit notes/problem list details OB Flowsheet Initial Weight: 144 lb Date -?-?-?-?-?-?-?-?-?-?-?-?- EGA Weight BP Urine Prot -?-?-?-?-?-?-?-?-?-?-?-?- Glucose FHR FuHt Pres Dilation -?-?-?-?-?-?-?-?-?-?-?-?- Effaced St Visit Note 12/17/20 -?-?-?-?-?-?-?-?-?--?-?-?- 8w 3d 144 lb (+0 oz) 144/76 -?-?-?-?-?-?-?-?-?-?-?-?- 145 -?-?-?-?-?-?-?-?-?-?-?-?- SM- CRL cons wit h LMP 2 cm 01/02/21 -?-?-?-?-?-?-?-?-?-?-?-?- 10w 5d 143 lb 8 oz (-8 oz) 120/66 120/66 Negative -?-?-?-?-?-?-?-?-?-?-?-?- Negative 170 -?-?-?-?-?-?-?-?-?-?-?-?- GP - work in for bleeding. Had bleeding like a period last night with spotting this am. Bleeding now stopped. US shows live IUP. No evidence of ALICIA. Bleeding precautions reviewed. 01/14/21 -?-?-?-?-?-?-?-?-?-?-?-?- 12w 3d 145 lb (+16 oz) 118/67 Negative -?-?-?-?-?-?-?-?-?-?-?-?- Negative 160 -?-?-?-?-?-?-?-?-?-?-?-?- MH-had bleeding 2 nights ago. None since. Rhogam 01/02. Formal US ordered. Able to see active live IUP with sm US. Also note petechia type rash on back and abdomen/itches. Also saw pcp for persistent samanta type rash on back of right leg:will try rick. Will see Dr Wasserman. 01/24/21 -?-?-?-?-?-?-?-?-?-?-?-?- 13w 6d 144 lb 4 oz (+4 oz) 138/88 -?-?-?-?-?-?-?-?-?-?-?-?- 150 -?-?-?-?-?-?-?-?-?-?-?-?- GP - work in for bright red bleeding. US shows subchorionic bleed. Placenta appears intact. Recommend decreased activity and pelvic rest. 01/30/21 -?-?-?-?-?-?-?-?-?-?-?-?- 14w 5d 144 lb (+0 oz) 112/82 Negative -?-?-?-?-?-?-?-?-?-?-?-?- Negative 150 -?-?-?-?-?-?-?-?-?-?-?-?- SM- still having intermitent bleeding, plan MFM consult. SM- still having intermitent bleeding, plan MFM consult. labs ordered 02/11/21 -?-?-?-?-?-?-?-?-?-?-?-?- 16w 3d 147 lb (+3 lb) 116/68 Negative -?-?-?-?-?-?-?-?-?-?-?-?- Negative 145 -?-?-?-?-?-?-?-?-?-?-?-?- SM- still having some vb spotting throughout the day, has MFM appt scheduled. 03/04/21 -?-?-?-?-?-?-?-?-?-?-?-?- 19w 3d 149 lb (+5 lb) 100/72 Negative -?-?-?-?-?-?-?-?-?-?-?-?- Negative 145 -?-?-?-?-?-?-?-?-?-?-?-?- SM- no vb lof go od fm n oregular ctx 04/03/21 -?-?-?-?-?-?-?-?-?-?-?-?- 23w 5d 152 lb (+8 lb) 120/80 Negative -?-?-?-?-?-?-?-?-?-?-?-?- Negative 140 -?-?-?-?-?-?-?-?-?-?-?-?- SM- no vb lof go d fm no regular ctx 05/13/21 -?-?-?-?-?-?-?-?-?-?-?-?- 29w 3d 166 lb (+22 lb) 110/72 Negative -?-?-?-?-?-?-?-?-?-?-?-?- Negative 140 30 -?-?-?-?-?-?-?-?-?-?-?-?- SM- no vb lof go od fm no regular ctx cbc gct tdap rhogam 06/06/21 -?-?-?-?-?-?-?-?-?-?-?-?- 32w 6d 169 lb 4 oz (+25 lb 4 oz) 110/68 Negative -?-?-?-?-?-?-?-?-?-?-?-?- Negative 130 33 -?-?-?-?-?-?-?-?-?-?-?-?- SM- no vb lof go od fm no regular ctx dscussed uterine irritability 06/13/21 -?-?-?-?-?-?-?-?-?-?-?-?- 33w 6d 167 lb (+23 lb) 120/62 -?-?-?-?-?-?-?-?-?-?-?-?- 130 34 -?-?-?-?-?-?-?-?-?-?-?-?- SM- no vb lof go od fm having some ctx. 06/20/21 -?-?-?-?-?-?-?-?-?-?-?-?- 34w 6d 172 lb (+28 lb) -?-?-?-?-?-?-?-?-?-?-?-?- 130 -?-?-?-?-?-?-?-?-?-?-?-?- SM- no vb lof ir regular ctx gbs done 06/25/21 -?-?-?-?-?-?-?-?-?-?-?-?- 35w 4d 171 lb 4 oz (+27 lb 4 oz) 100/60 Trace -?-?-?-?-?-?-?-?-?-?-?-?- Negative 130 -?-?-?-?-?-?-?-?-?-?-?-?- MH-nonreassuring NST. Consult JV and to WP for further evaluation. 07/04/21 -?-?-?-?-?-?-?-?-?-?-?-?- 36w 6d 170 lb (+26 lb) 126/80 Negative -?-?-?-?-?-?-?-?-?-?-?-?- Negative 130 -?-?-?-?-?-?-?-?-?-?-?-?- SM- irregular ct x no vb lof good fm 07/05/21 -?-?-?-?-?-?-?-?-?-?-?-?- 37w 0d 169 lb 12.095 oz (+25 lb 12.095 oz) -?-?-?-?-?-?-?-?-?-?-?-?- -?-?-?-?-?-?-?-?-?-?-?-?- ROS Constitutional Constitutional: Denies change in weight, fatigue, fever(s), headache(s), poor appetite or weakness Eyes Eyes: Denies blurry vision, change in vision, seeing flashes or spots in vision ENT HEENT: Denies dizziness, headache(s), loss taste/smell or sore throat Cardiovascular Cardiovascular: Denies chest pain, dizziness, dyspnea, irregular heart rhythm, leg edema, palpitations, rapid heart rate or vomiting Respiratory/Chest Respiratory/Chest: Denies chest tightness, cough, dyspnea or breast pain Gastrointestinal Gastrointestinal: Denies abdominal pain, anorexia, constipation, cramping, diarrhea, hemorrhoids, vomiting or weight changes Genitourinary Genitourinary: Denies dysuria, flank pain, genital lesions, genital pain, urinary frequency or urinary urgency Musculoskeletal Musculoskeletal: Denies back pain, difficulty walking, joint pain, limited range of motion, muscle cramps or numbness Integumentary Integumentary: Denies lesions or unusual bruising Neurologic Neurologic: Denies abnormal movements, abnormal speech, dizziness, numbness, seizure-like activity or syncope Psychiatric Psychiatric: Denies anxiety, behavioral changes, change in appetite, change in libido, cognitive impairment, confusion, depression, difficulty concentrating, hallucinations or suicidal thoughts Endocrine Endocrinology: Denies excessive sweating, polydipsia or polyuria Hematologic/Lymphatic Hematologic/Lymphatic: Denies easy bleeding, easy bruising or lymphadenopathy Allergic/Immunologic Allergic/Immunologic: Denies itchy eyes, lip swelling, seasonal rhinorrhea, rhinitis, throat swelling, tongue swelling, eczemia, wheezing or asthma Vital Signs Vital Signs Vital Signs: Weight Weight: 169 lb 12.095 oz Body Mass Index (BMI) 28.2 Physical Exam Const alert, oriented x3, no apparent distress and healthy appearing General Appearance: cooperative; Negative for anxious HEENT normocephalic Face and Sinus: normal facial exam Eyes EOMs intact bilaterally and no scleral icterus General Eye: normal appearance of both eyes Neck full ROM and supple Lymph Lymphatic: no lymphadenopathy noted Chest Chest: abnormal inspection of the chest Resp normal respiratory effort Effort and Inspection: able to speak in complete sentences Cardio regular rate GI soft to palpation and non-tender Inspection: gravid Palpation: soft; Negative for tender external exam normal Amniotic Fluid: other grossly ruptured and 1 cm dilated. Back/Spine no CVA tenderness Extremity normal to inspection, full ROM and no clubbing, cyanosis or edema General Extremity: Negative for calf tenderness or edema Skin Lesions: no lesions Rashes: no rashes Psych mental status grossly normal Labs Labs Labs: Blood Type O NEGATIVE Antibody Screen NEGATIVE Hct 35.4 % (37-47) L Hgb 11.5 g/dL (12.0-15.0) L Pap Smear Negative Obstetrics US Syphilis Total Ab Non-reactive Rubella IgG Antibody Reactive (Nonreactive) Hep Bs Antigen Non-Reactive (Nonreactive) Neisseria gonorrhoeae DNA (CHRISTIAN) Negative (Negative) HIV 1&2 Antibody Non-Reactive (Nonreactive) Glucose 1 Hr 50 gm 111 mg/dL (70-140) Rhogam given: Yes Assessment & Plan (1) contractions: COMMENT: exp management, procardia given for comfort. BMZ given. (2) Anxiety: COMMENT: on zoloft (3) : QUALIFIERS: Weeks of gestation: 36 weeks Qualified Code(s): Z3A.36 - 36 weeks gestation of COMMENT: Declines carrier screen. NIPT- low risk DOES NOT WANT TO KNOW GENDER; NL anatomy. GBS neg (4) History of : COMMENT: 07/19/21 @ 13, LTCS with SM (5) Rh negative state in antepartum period: COMMENT: Rhogam 28 wk, pp and prn (6) Supervision of high risk , antepartum: COMMENT: PRR [place] 07/26/21 PC: Loida Diaz. Spouse:Oneal (7) History of delivery: COMMENT: plan CL screening and progesterone injections (8) Contact dermatitis: COMMENT: start clarailyn, see Dr Wasserman ?1st trim PUPPS (9) Ovarian cyst: COMMENT: h/o dermoid, possible ovarian cystectomy with RLTCS (10) AMA (advanced maternal age) multigravida 35+: QUALIFIERS: Trimester: third trimester Qualified Code(s): O09.523 - Supervision of elderly multigravida, third trimester PLAN: plan for repeat section now with bilateral tubal ligation. surgical risks, benefits, alternatives discussed 2 grams ancef ordered
[2021-07-05] MEDS: Lactated Ringers 1,000 ML 999 ML IV (03:30)
--- NOTE | 2021-07-05 03:33 | PCM.DC ---
Discharge Instructions Diet Discharge Diet: No restrictions Activity Discharge Activity: May Not Drive (for 2 weeks or while taking narcotic pain medications.), May Shower and May Take a Tub Bath (in 7 days.) May resume sexual activity in: 4-6 weeks Weight Bearing Status: Full weight bearing Lifting Restrictions: 20 pounds Dressing / Incision Call your doctor if your incision/area has: Continuous Slow Oozing, Sudden Increased Bleeding, Increased Pain/ Swelling, Increased Redness and Foul Smelling Discharge Call your doctor if you observe: Fever of 101 or Higher and Using more than 1 pad per hour Suture Line Care: Avoid Pulling/Pushing and Avoid Pinching/Bending Cleanse incision/area with: Soap & Water and Keep Dressing Clean & Dry Follow Up Care Please Follow Up With: Amara Butler DO When: Call [phone] to make an appointment for an incision check in 1-2 weeks. Test Results: Test results from this visit will be discussed in further detail at your follow-up appointment, if applicable. Discharge Plan Admission Admit Date/Time: 07/05/21 03:20 Primary Reason for Your Visit: section Attending Provider: Amara Butler Primary Care Provider: Ze Lopez Discharge Orders/Prescriptions Prescriptions: New ibuprofen 800 mg tablet 800 mg PO Q8H PRN (Reason: pain) 7 Days Qty: 30 RF: 0 oxycodone-acetaminophen [oxycodone-acetaminophen] 1 TABLET tablet 1 - 2 tab PO Q4H PRN PRN (Reason: Pain) 7 Days Qty: 30 RF: 0 Continued triamcinolone acetonide [Nasacort] 55 mcg aerosol,spray 1 spray INTRANASAL DAILY RF: 0 vit,[id number] 1 TABLET tablet 1 tab PO DAILY RF: 0 sertraline [Zoloft] 50 mg tablet 50 mg PO DAILY Qty: 90 RF: 4 Discontinued [place] (PF) 275 mg/1.1 mL Auto-Injector 275 mg SUBCUT QWEEK RF: 0 nifedipine 10 mg capsule 10 mg PO Q6H PRN (Reason: contractions) 7 Days Qty: 28 RF: 0 Referrals / Follow Up: Ze Lopez [Primary Care Provider] - Disposition Disposition (needs filled in before D/C Order can be placed): Home, Self Care
[2021-07-05 03:49] LABS: Absolute Lymphocyte Count 2.35 X10^3/uL (0.83-4.51); Absolute Neutrophil Count 7.2 X10^3/uL (2.0-7.7); Basophil# 0.02 X10^3/uL; Basophil% 0.2 % (0-1); Eosinophil# 0.08 X10^3/uL; Eosinophils% 0.8 % (0-5); Hematocrit 36.6 % (37-47); Hemoglobin 12.2 g/dL (12.0-15.0); Lymphocyte # 2.35 X10^3/ul (0.83-4.51); Lymphocyte % 22.6 % (19-41); Mean Corp Hgb Conc 33.3 g/dL (32-36); Mean Corpuscular Hgb 31.2 pg (27.0-32.0); Mean Corpuscular Volume 93.6 fL (81-99); Mean Platelet Vol. 11.1 fl (6.2-12.0); Monocyte# 0.67 X10^3/uL; Monocyte% 6.5 % (0-10); NRBC Flagged by Analyzer 0 % (0-5); Neutrophil # 7.15 X10^3/uL (2.7-7.7); Neutrophil % 68.8 % (47-70); Platelet Count 183 K/mm3 (150-450); RBC Distribution Width CV 14.3 % (11.6-14.6); RBC Distribution Width SD 49.1 fl (35.1-43.9); Red Blood Count 3.91 M/mm3 (4.2-5.4); White Blood Count 10.4 K/mm3 (4.4-11.0)
[2021-07-05] MEDS: Sodium Citrate/Citric Acid 30 ML UDC PO (04:10)
[2021-07-05] MEDS: Acetaminophen 500 MG Tablet 1000 MG PO ×4 (04:10→22:05)
[2021-07-05] MEDS: Cefazolin 2 GM in 0.9% Normal Saline 100 ML IV (04:20)
[2021-07-05] MEDS: Lactated Ringers 1,000 ML 150 ML IV (04:31)
--- NOTE | 2021-07-05 05:20 | EX.PCM.OBRPT ---
Maternal Data Information [place] Calculator Estimated Delivery Date Method Current WG Current Estimate 07/26/21 LMP (Certain) 37w 0d Details Operative Information Date of Procedure: 07/05/21 Pre-Operative Diagnosis: 37 weeks 0 days, SROM, prior section, , desires permanent sterilization Post-Operative Diagnosis: 37 weeks 0 days, SROM, prior section, , desires permanent sterilization Classification: MATT Procedure Type: - (right salpingectomy ) general merchandise manager #1: Hailee Rivas Type of Anesthesia: Spinal Antibiotic Given: Ancef 2 grams IV x1 Estimated Blood Loss: 300cc Findings Description of Procedure: The patient is a 40y/o , who presented to L&D with grossly ruptured membranes and desiring repeat with right salpingectomy for contraception. Her left fallopian tube was removed already . Spinal anesthesia was placed without difficulty. Molina catheter was placed. The patient was placed in the dorsal supine position with leftward tilt. Patient was prepped and draped in the normal sterile fashion. Pfannenstiel skin incision was made with the scalpel and carried through to the underlying layer of fascia with the scalpel. Fascia was nicked in the midline and the incision extended laterally. The rectus bellies were dissected off superiorly and inferiorly with out complication both sharply and bluntly. The peritoneum was entered digitally. The incision was stretched and a low transverse uterine incision was made with the scalpel. The infant's head was delivered atraumatically followed by the anterior and posterior shoulders without complication the rest of the delivered. The cord was clamped and cut and the infant was handed off to awaiting nurse. The placenta was delivered spontaneously immediately following and was noted to be intact and have a three-vessel cord. The uterus was exteriorized cleared of all clots and debris, and the incision was closed in a double layer closure using#1 vicryl and #1 Monocryl. The right ovary and fallopian tube was noted to be within normal limits with exception of a few powder burn endometriosis lesions on the ovary. The left fallopian tube and ovary were noted to be surgically absent. The right tube was grasped with a kendrick clamp and the underlying mesosalpinx was cauterized and cut using the ligasure device. The uterus was returned to the maternal abdomen and gutters were cleared of all clots and debris. The peritoneum was closed with 3-0 Monocryl in a running fashion. Gloves were changed prior to fascial closure. Fascia was closed with 0 PDS in a running fashion. Subcutaneous tissue was copiously irrigated and the skin was closed with 3-0 Monocryl in a subcuticular fashion. Mepilex dressing was applied without complication. Patient was taken to recovery in stable condition. Presentation: Positive for Vertex Amniotic Membrane Rupture Type: Spontaneous Amniotic Fluid Description: Clear Placental Delivery Description: Spontaneous Placenta Disposition: [facility] Cord Vessel Description: 3 Vessels Cord Entanglement: Around neck x 1, loose A Gender: Male (1 minute): 8 (5 minute): 9 Delayed Cord Clamping: Yes Complications Risks of Surgery Discussed w/Patient: Bleeding, Anesthesia Risks, Infection, Permanency, Failure Rate of 1 to 2%, Injury to surrounding structure(s) including bowel and bladder and Availability of other non-permanent control options Complications: None Multi Select Codes Urinary/Genital Urinary/Genital CPT Codes: 05008 BS/O laparotomy (right side only ) and 35032 Delivery [facility]
[2021-07-05] MEDS: Oxytocin 30 units/NS 500 ml 30 UNITS/500 ML IV.SOLN 167 UNITS IV (05:45)
[2021-07-05 05:59] LABS: Pathology Specimen OB SEE PATHOLOGY REPORT
[2021-07-05] MEDS: Ketorolac 30 MG/ML Syringe IV ×3 (06:28→19:00)
[2021-07-05] MEDS: Lactated Ringers 1,000 ML 100 ML IV (09:17)
[2021-07-05] MEDS: Senna/Docusate Sodium 1 Tablet PO (09:52)
[2021-07-05] MEDS: 0.9% Saline Lock 10 ML Syringe IV ×3 (15:10→19:00)
--- NOTE | 2021-07-05 17:32 | NURSING ---
1700-was up to br for several hours, up to br and now back to bed. was not able to empty bladder much 40cc measured, states she feels a little like she needs to go but fundus firm u-1 small rubra. enc to try and void again in an hour and if not able to go and she still feels like she needs to go will straight cath her. pt voiced understanding.
[2021-07-05] MEDS: Enoxaparin 40 MG/0.4 ML Syringe SC (22:05)
[2021-07-05] MEDS: Sertraline 50 MG Tablet PO (22:05)
[2021-07-06 00:23] VITALS: BP 105/64; PULSE 77; RESP 16; TEMP 36.8; O2SAT 96
[2021-07-06] MEDS: 0.9% Saline Lock 10 ML Syringe IV (00:25)
[2021-07-06] MEDS: Ketorolac 30 MG/ML Syringe IV (00:25)
[2021-07-06] MEDS: Acetaminophen 500 MG Tablet 1000 MG PO ×4 (04:27→22:23)
[2021-07-06 04:30] VITALS: BP 98/67; PULSE 98; RESP 18; TEMP 36.7; O2SAT 97
[2021-07-06 05:54] LABS: Hemoglobin 11.2 g/dL (12.0-15.0); Mean Corp Hgb Conc 32.9 g/dL (32-36); Mean Corpuscular Hgb 31.6 pg (27.0-32.0); Mean Platelet Vol. 11.4 fl (6.2-12.0); Platelet Count 157 K/mm3 (150-450); RBC Distribution Width CV 14.2 % (11.6-14.6); RBC Distribution Width SD 49.6 fl (35.1-43.9); Red Blood Count 3.54 M/mm3 (4.2-5.4); White Blood Count 12.3 K/mm3 (4.4-11.0)
[2021-07-06] MEDS: Ibuprofen 600 MG Tablet PO ×3 (06:54→18:26)
[2021-07-06 08:15] VITALS: BP 121/48; PULSE 71; RESP 16; TEMP 36.7; O2SAT 98
--- NOTE | 2021-07-06 08:53 | PCM.PN.OB ---
Subjective Subjective Patient doing well without complaints. Tolerating PO. Ambulating and voiding without difficulty. feeding well. Denies chest pain, shortness of breath, calf pain/swelling, fevers, chills, lightheadedness. Objective Data Objective Data Vital Signs: Vital Signs Temp Pulse Resp BP Pulse Ox 98.0 F 98 18 98/67 97 07/06/21 04:30 07/06/21 04:30 07/06/21 04:30 07/06/21 04:30 07/06/21 04:30 Oxygen Delivery Method Room Air Weight: 169 lb 12.095 oz Body Mass Index (BMI) 28.2 Intake & Output: Intake and Output for Last 24 Hours 07/04/21 07/05/21 07/06/21 23:59 23:59 23:59 Intake Total 4966.67 / 4966.67 Output Total 2265 / 2265 Balance 2701.67 / 2701.67 Lab / Micro Data Result Diagrams: 07/06/21 05:44 Labs: Laboratory Results - last 24 hr 07/05/21 09:00: Screen NEGATIVE, Baby's Blood Type A POSITIVE, Baby's ERVIN NEGATIVE 07/06/21 05:44: WBC 12.3 H, RBC 3.54 L, Hgb 11.2 L, Hct 34.0 L, MCV 96.0, MCH 31.6, MCHC 32.9, RDW Std Deviation 49.6 H, RDW Coeff of Rosas 14.2, Plt Count 157, MPV 11.4 Micro: Microbiology 07/05/21 04:00 Nasal Secretion SARS-CoV-2 Antigen (Rapid) - Final ROS Constitutional Constitutional: Reports systems reviewed and no addt'l complaints, except as documented Cardiovascular Cardiovascular: Reports systems reviewed and no addt'l complaints, except as documented Respiratory/Chest Respiratory/Chest: Reports systems reviewed and no addt'l complaints, except as documented Gastrointestinal Gastrointestinal: Reports systems reviewed and no addt'l complaints, except as documented Physical Exam Const alert, oriented x3 and no apparent distress HEENT Head and Scalp: atraumatic Resp normal respiratory effort GI soft to palpation and non-tender Inspection: incision intact, healing well and drainage (none) Bimanual Exam - Vag & Uterus: uterus non-tender Uterus Palpation: uterus fundus firm (below Umbilicus) Assessment & Plan (1) delivery delivered: COMMENT: RLTCS PLAN: routine pp care
[2021-07-06] MEDS: Senna/Docusate Sodium 1 Tablet PO (11:36)
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
[2021-07-06 14:35] VITALS: BP 118/74; PULSE 92; RESP 14; TEMP 36.7
[2021-07-06 20:29] VITALS: BP 103/69; PULSE 88; RESP 16; TEMP 36.6; O2SAT 97
[2021-07-06] MEDS: Enoxaparin 40 MG/0.4 ML Syringe SC (22:23)
[2021-07-06] MEDS: Sertraline 50 MG Tablet PO (22:23)
[2021-07-07] MEDS: Ibuprofen 600 MG Tablet PO ×3 (00:04→12:35)
[2021-07-07 02:33] VITALS: BP 109/69; PULSE 79; RESP 16; TEMP 36.6
[2021-07-07] MEDS: Acetaminophen 500 MG Tablet 1000 MG PO ×2 (04:25→12:42)
--- NOTE | 2021-07-07 07:08 | PCM.PN.OB ---
Subjective Subjective Patient doing well without complaints. Tolerating PO. Ambulating and voiding without difficulty. feeding well. Denies chest pain, shortness of breath, calf pain/swelling, fevers, chills, lightheadedness. Objective Data Objective Data Vital Signs: Vital Signs Temp Pulse Resp BP Pulse Ox 97.9 F 79 16 109/69 97 07/07/21 02:33 07/07/21 02:33 07/07/21 02:33 07/07/21 02:33 07/06/21 20:29 Oxygen Delivery Method Room Air Weight: 169 lb 12.095 oz Body Mass Index (BMI) 28.2 Intake & Output: Intake and Output for Last 24 Hours 07/05/21 07/06/21 07/07/21 23:59 23:59 23:59 Intake Total 4966.67 / 4966.67 Output Total 2265 / 2265 Balance 2701.67 / 2701.67 Lab / Micro Data Result Diagrams: 07/06/21 05:44 Micro: Microbiology 07/05/21 04:00 Nasal Secretion SARS-CoV-2 Antigen (Rapid) - Final ROS Constitutional Constitutional: Reports systems reviewed and no addt'l complaints, except as documented Cardiovascular Cardiovascular: Reports systems reviewed and no addt'l complaints, except as documented Respiratory/Chest Respiratory/Chest: Reports systems reviewed and no addt'l complaints, except as documented Gastrointestinal Gastrointestinal: Reports systems reviewed and no addt'l complaints, except as documented Physical Exam Const alert, oriented x3 and no apparent distress HEENT Head and Scalp: atraumatic Resp normal respiratory effort GI soft to palpation and non-tender Inspection: incision intact, healing well and drainage (none) Bimanual Exam - Vag & Uterus: uterus non-tender Uterus Palpation: uterus fundus firm (below Umbilicus) Assessment & Plan (1) delivery delivered: COMMENT: RLTCS PLAN: s/p LTCS PPD # 1 1. routine post care 2. breast feeding- support given 3. rh positive 4. rubella immune
[2021-07-07 08:00] VITALS: BP 120/78; PULSE 75; RESP 16; TEMP 36.6; O2SAT 99
[2021-07-07] MEDS: Senna/Docusate Sodium 1 Tablet PO (12:35)
[2021-07-07 12:44] VITALS: BP 128/72; PULSE 77; RESP 16; TEMP 36.5
== END 2021-07-07 14:20 | disposition home or self-care (01) | DRG 785 ==
LOC: WPOUT 03:21 → WP 03:21
PROVIDERS: Admitting Provider Obstetrics & Gynecology; PCP Family Medicine; Referring Provider Obstetrics & Gynecology; Visit Provider Obstetrics & Gynecology
DX: O34.211 Maternal care for low transverse scar from previous cesarean delivery (principal); F32.A Depression, unspecified; F41.9 Anxiety disorder, unspecified; O42.02 Full-term premature rupture of membranes, onset of labor within 24 hours of rupture; O99.344 Other mental disorders complicating childbirth; O34.83 Maternal care for other abnormalities of pelvic organs, third trimester; N83.8 Other noninflammatory disorders of ovary, fallopian tube and broad ligament; O69.81X0 Labor and delivery complicated by cord around neck, without compression, not applicable or unspecified; O26.893 Other specified pregnancy related conditions, third trimester; Z67.41 Type O blood, Rh negative; Z37.0 Single live birth; Z3A.37 37 weeks gestation of pregnancy; Z87.59 Personal history of other complications of pregnancy, childbirth and the puerperium; Z30.2 Encounter for sterilization
CPT/HCPCS: 59025; 59050; 85025; 85027; 85461; 86850; 86900; 86901; 87426; 88302; 90384; 99218; J7120; A4216; G0378; J2790

== ENCOUNTER 2021-07-17 09:22 | Outpatient (CLI) | payer OTHER, SELFPAY ==
[2021-07-17 09:34] LABS: Absolute Lymphocyte Count 1.78 X10^3/uL (0.83-4.51); Absolute Neutrophil Count 5.3 X10^3/uL (2.0-7.7); Basophil# 0.04 X10^3/uL; Basophil% 0.5 % (0-1); Eosinophil# 0.22 X10^3/uL; Eosinophils% 2.9 % (0-5); Hemoglobin 13.4 g/dL (12.0-15.0); Lymphocyte # 1.78 X10^3/ul (0.83-4.51); Lymphocyte % 23.3 % (19-41); Mean Corp Hgb Conc 31.9 g/dL (32-36); Mean Corpuscular Hgb 30.1 pg (27.0-32.0); Mean Corpuscular Volume 94.4 fL (81-99); Mean Platelet Vol. 9.5 fl (6.2-12.0); Monocyte# 0.32 X10^3/uL; Monocyte% 4.2 % (0-10); NRBC Flagged by Analyzer 0 % (0-5); Neutrophil # 5.26 X10^3/uL (2.7-7.7); Neutrophil % 68.8 % (47-70); Platelet Count 292 K/mm3 (150-450); RBC Distribution Width SD 48.5 fl (35.1-43.9); Red Blood Count 4.45 M/mm3 (4.2-5.4); White Blood Count 7.6 K/mm3 (4.4-11.0)
[2021-07-17 09:53] LABS: ALB/GLOB Ratio 0.8 RATIO (0.9-2.4); AST(SGOT) 11 U/L (15-37); Alanine Aminotransfer ALT/SGPT 26 U/L (13-56); Albumin, Serum 3.3 g/dL (3.2-5.0); Alkaline Phosphatase 106 U/L (45-117); Anion Gap 6 (5-15); BUN 12 mg/dL (7-18); BUN/Creat Ratio 17.3 RATIO (10-20); Calcium,Total 8.6 mg/dL (8.5-10.1); Chloride 108 mmol/L (98-107); Creatinine, Serum 0.69 mg/dL (0.55-1.02); EST Glomerular Filtration Rate 100 mL/min (>60); Est Glom Filt Rate - Afr Amer 121 mL/min (>60); Glucose 84 mg/dL (74-106); Potassium 3.2 mmol/L (3.5-5.1); Protein, Total 7.3 g/dL (6.4-8.2); Sodium Level 142 mmol/L (136-145)
[2021-07-17 10:01] LABS: Protein, Urine (Random) < 6.0 mg/dL (<11.9)
== END 2021-07-17 23:59 | disposition home or self-care (01) ==
LOC: PAVLAB 09:23
PROVIDERS: PCP Family Medicine; Referring Provider Nurse Practitioner Women's Health; Visit Provider Nurse Practitioner Women's Health
DX: O90.89 Other complications of the puerperium, not elsewhere classified (principal); R51.9 Headache, unspecified
CPT/HCPCS: 36415; 80053; 82570; 84156; 85025

== ENCOUNTER → 2022-09-10 | Outpatient (CLI) | payer OTHER, SELFPAY ==
[2022-09-16 15:08] LABS: HPV APTIMA, High Risk Negative (Negative)
== END | disposition home or self-care (01) ==
PROVIDERS: PCP Nurse Practitioner Family; Visit Provider Obstetrics & Gynecology
DX: Z12.4 Encounter for screening for malignant neoplasm of cervix (principal)
CPT/HCPCS: 87624; 88175; G0145

== ENCOUNTER → 2022-10-07 | Outpatient (CLI) | payer OTHER, SELFPAY ==
--- NOTE | 2022-10-07 07:12 | BI_ITS ---
MAMMOGRAPHY - BILATERAL SCREENING REASON FOR EXAM: Female, 41 years old. Routine annual screening examination. PERTINENT HISTORY: Non-contributory. TECHNIQUE: Digital bilateral breast [place] (3D mammographic acquisition) in the CC and MLO projections. 2-D mediolateral oblique (MLO) and craniocaudad (CC) views of both breasts were obtained. CAD: Full Field Digital Mammography with Computer Added Detection was performed. COMPARISON: None. Baseline examination. FINDINGS: Breast Composition: The breasts are extremely dense, which lowers the sensitivity of mammography. There are no dominant masses or suspicious calcifications. Small benign-appearing bilateral axillary lymph nodes. No other significant abnormalities are identified. There has been no significant change since the prior study. BI/SCRN MAMM (CAD)W/ALBERTA BILAT IMPRESSION: Stable bilateral screening mammogram. Yearly follow-up mammogram recommended. (A) ASSESSMENT CATEGORY: BIRADS Category 2: Benign. A letter regarding these results will be sent to the patient by the facility within 30 days. Approximately 10% of breast cancers are not detected by mammography. A normal mammogram should not delay biopsy of a clinically suspicious abnormality. [id number] Electronically Signed: Alexis Lima MD at 9:04 EDT ,
== END | disposition home or self-care (01) ==
LOC: OPBI 07:10
PROVIDERS: PCP Nurse Practitioner Family; Referring Provider Obstetrics & Gynecology; Visit Provider Obstetrics & Gynecology
DX: Z12.31 Encounter for screening mammogram for malignant neoplasm of breast (principal)
CPT/HCPCS: 77063; 77067

== ENCOUNTER → 2024-09-21 | Outpatient (CLI) | payer OTHER, SELFPAY ==
--- NOTE | 2024-09-21 08:45 | BI_ITS ---
EXAM: SCRN MAMM (CAD)W/ALBERTA BILAT DATE: 09/21/2024 CLINICAL HISTORY: F, Age 43 y/o , BREAST CANCER SCREENING BREAST CANCER RISK ASSESSMENT: Has not been calculated. TECHNIQUE: Bilateral screening digital breast tomosynthesis with 2D and 3D images. Computer aided detection. COMPARISON: Prior exam(s) dated 10/07/2022. FINDINGS: TISSUE DENSITY: The breast tissue is heterogenously dense, which may obscure small masses. Bilateral Breast Mammographic Findings: There are no suspicious masses, suspicious clustered microcalcifications, architectural distortion or secondary signs of malignancy identified in either breast. Well-circumscribed stable isodense masses are seen in the superior outer aspect of both breasts. The mass in the left breast is projected over the pectoralis muscle on the MLO view. It is stable. There has been no significant change since the prior study. BI/SCRN MAMM (CAD)W/ALBERTA BILAT IMPRESSION: OVERALL FINAL ASSESSMENT: BIRADS 2 BENIGN FINDING RECOMMENDATION: Routine annual follow-up in 1 Year A letter with findings and recommendations will be mailed to the patient. Reading Location: [id number]
== END | disposition home or self-care (01) ==
LOC: OPBI 08:33
PROVIDERS: PCP Nurse Practitioner Family; Referring Provider Obstetrics & Gynecology; Visit Provider Obstetrics & Gynecology
DX: Z12.31 Encounter for screening mammogram for malignant neoplasm of breast (principal)
CPT/HCPCS: 77063; 77067

== ENCOUNTER → 2025-02-14 | Outpatient (CLI) | payer OTHER, SELFPAY | END | disposition home or self-care (01) | LOC: LABSPEC 12:33 | PROVIDERS: PCP Nurse Practitioner Family; Visit Provider Physician Assistant | DX: J02.9 Acute pharyngitis, unspecified (principal) | CPT/HCPCS: 87070 ==